=== PATIENT | male | born 1955 | race Caucasian/White ===

== ENCOUNTER → 2016-07-12 | Outpatient (CLI) | payer OTHER ==
[~2016-07-12] MED LIST: ALBUPOW26; FURO40TA OR
[2016-07-12 08:14] LABS: Urine RBC None Seen /hpf (0 - 3)
[2016-07-12 08:35] LABS: Basophils # (auto) 0 uL; Basophils % (auto) 0.6 % (0.0-2.0); Eosinophils # (auto) 0.1 uL; Eosinophils % (auto) 3.5 % (0.0-7.0); Hematocrit 46.9 % (41.0-53.0); Hemoglobin 16.4 g/dL (13.5-17.5); Lymphocytes # (auto) 1.2 uL; Lymphocytes % (auto) 30.8 % (10.0-50.0); Mean Corpuscular Hemoglobin 32.1 pg (28.0-32.0); Mean Corpuscular Hgb Conc. 34.8 g/dL (32.0-36.0); Mean Corpuscular Volume 92.1 fL (80.0-100.0); Mean Platelet Volume 8.3 fL (7.4-10.4); Monocytes # (auto) 0.3 uL; Monocytes % (auto) 8.7 % (0.0-12.0); Neutrophils # (auto) 2.1 uL; Neutrophils % (auto) 56.4 % (37.0-80.0); Platelet Count (auto) 256 10^3/uL (140-450); Red Cell Distribution Width 13.1 % (11.6-16.0); White Blood Cell 3.8 10^3/uL (4.4-10.8)
[2016-07-12 08:36] LABS: Urine Bilirubin Negative (Negative); Urine Blood Negative /uL (Negative); Urine Color Yellow (Yellow); Urine Glucose Normal (Normal); Urine Ketone Negative (Negative); Urine Nitrite Negative (Negative); Urine Urobilinogen Normal (Negative)
[2016-07-12 09:08] LABS: Albumin 3.9 g/dL (3.4-5.0); BUN/Creatinine Ratio 20.2; Bilirubin, Total 0.9 mg/dL (0.2-1.0); Calcium 8.8 mg/dL (8.5-10.1); Potassium 4.4 mmol/L (3.5-5.1); Total Protein 6.9 g/dL (6.4-8.2)
== END | disposition home or self-care (01) ==
LOC: LAB 06:35
DX: N40.0 Benign prostatic hyperplasia without lower urinary tract symptoms (principal); F10.10 Alcohol abuse, uncomplicated; Z80.0 Family history of malignant neoplasm of digestive organs
CPT/HCPCS: 36415; 80053; 80061; 81001; 82270; 84153; 84443; 85025

== ENCOUNTER → 2016-10-31 | Outpatient (CLI) | payer OTHER | END | disposition home or self-care (01) | LOC: LAB 11:00 | PROVIDERS: ATTEND Physician Assistant | DX: L82.1 Other seborrheic keratosis (principal) ==

== ENCOUNTER → 2017-01-10 | Outpatient (CLI) | payer OTHER ==
[2017-01-10 06:52] LABS: Basophils # (auto) 0 uL; Basophils % (auto) 0.3 % (0.0-2.0); CONDITION Y; Eosinophils # (auto) 0.1 uL; Eosinophils % (auto) 3.1 % (0.0-7.0); Hematocrit 46.2 % (41.0-53.0); Hemoglobin 15.8 g/dL (13.5-17.5); Lymphocytes # (auto) 1.1 uL; Lymphocytes % (auto) 27.9 % (10.0-50.0); Mean Corpuscular Hemoglobin 32.5 pg (28.0-32.0); Mean Corpuscular Hgb Conc. 34.3 g/dL (32.0-36.0); Mean Corpuscular Volume 94.8 fL (80.0-100.0); Mean Platelet Volume 8.6 fL (7.4-10.4); Monocytes # (auto) 0.3 uL; Monocytes % (auto) 8.3 % (0.0-12.0); Neutrophils # (auto) 2.5 uL; Neutrophils % (auto) 60.4 % (37.0-80.0); Platelet Count (auto) 234 10^3/uL (140-450); Red Cell Distribution Width 13.9 % (11.6-16.0); White Blood Cell 4.1 10^3/uL (4.4-10.8)
[2017-01-10 07:09] LABS: Urine Bilirubin Negative (Negative); Urine Blood Negative /uL (Negative); Urine Color Yellow (Yellow); Urine Glucose Normal (Normal); Urine Ketone Negative (Negative); Urine Mucus FEW (None Seen); Urine Nitrite Negative (Negative); Urine RBC None Seen /hpf (0 - 3); Urine Urobilinogen Normal (Negative); Urine pH 6.5 (5.0-8.0)
[2017-01-10 07:10] LABS: Albumin 3.8 g/dL (3.4-5.0); BUN/Creatinine Ratio 35.2; Bilirubin, Total 0.8 mg/dL (0.2-1.0); Calcium 8.6 mg/dL (8.5-10.1); Potassium 4.3 mmol/L (3.5-5.1); Total Protein 6.8 g/dL (6.4-8.2)
== END | disposition home or self-care (01) ==
LOC: LAB 06:34
PROVIDERS: ATTEND Family Medicine
DX: J44.9 Chronic obstructive pulmonary disease, unspecified (principal); E03.9 Hypothyroidism, unspecified
CPT/HCPCS: 36415; 80053; 80061; 81001; 84443; 85025

== ENCOUNTER → 2017-12-21 | Outpatient (CLI) | payer OTHER ==
[2017-12-21 08:07] LABS: Basophils # (auto) 0 uL; Basophils % (auto) 0.7 % (0.0-2.0); Eosinophils # (auto) 0.1 uL; Eosinophils % (auto) 2.2 % (0.0-7.0); Hematocrit 45.7 % (41.0-53.0); Hemoglobin 15.7 g/dL (13.5-17.5); Lymphocytes # (auto) 1.1 uL; Lymphocytes % (auto) 22.6 % (10.0-50.0); Mean Corpuscular Hemoglobin 32.8 pg (28.0-32.0); Mean Corpuscular Hgb Conc. 34.4 g/dL (32.0-36.0); Mean Corpuscular Volume 95.4 fL (80.0-100.0); Monocytes # (auto) 0.4 uL; Monocytes % (auto) 8.5 % (0.0-12.0); Neutrophils # (auto) 3.1 uL; Nucleated Red Blood Cells % 0.2 %; Platelet Count (auto) 187 10^3/uL (140-450); Red Blood Cells 4.79 10^6/uL (4.5-5.90); Red Cell Distribution Width 13.6 % (11.8-14.3); White Blood Cell 4.8 10^3/uL (4.4-10.8)
[2017-12-21 08:16] LABS: Urine Bacteria NONE SEEN /hpf (None Seen); Urine Blood Negative /uL (Negative); Urine Specific Gravity 1.006 (1.001-1.035); Urine WBC <1 /hpf (0 - 3)
[2017-12-21 08:47] LABS: Albumin 3.9 g/dL (3.4-5.0); BUN/Creatinine Ratio 27.6; Bilirubin, Total 1.4 mg/dL (0.2-1.0); Calcium 8.8 mg/dL (8.5-10.1); Potassium 4.7 mmol/L (3.5-5.1); Total Protein 6.8 g/dL (6.4-8.2)
== END | disposition home or self-care (01) ==
LOC: LAB 07:12
PROVIDERS: ATTEND Family Medicine
DX: J44.9 Chronic obstructive pulmonary disease, unspecified (principal); R53.83 Other fatigue
CPT/HCPCS: 36415; 80053; 80061; 81001; 82306; 84153; 85025

== ENCOUNTER 2018-09-07 07:18 | Day surgery (SDC) | payer OTHER ==
[2018-09-04 12:35] LABS: Basophils # (auto) 0 uL; Basophils % (auto) 0.6 % (0.0-2.0); Eosinophils # (auto) 0.1 uL; Eosinophils % (auto) 1.4 % (0.0-7.0); Hematocrit 49.5 % (41.0-53.0); Hemoglobin 17.1 g/dL (13.5-17.5); Lymphocytes # (auto) 1.3 uL; Lymphocytes % (auto) 18.5 % (10.0-50.0); Mean Corpuscular Hemoglobin 32.8 pg (28.0-32.0); Mean Corpuscular Hgb Conc. 34.6 g/dL (32.0-36.0); Mean Corpuscular Volume 94.6 fL (80.0-100.0); Monocytes # (auto) 0.4 uL; Monocytes % (auto) 5.3 % (0.0-12.0); Neutrophils # (auto) 5.1 uL; Neutrophils % (auto) 74.2 % (37.0-80.0); Nucleated Red Blood Cells % 0.1 %; Platelet Count (auto) 188 10^3/uL (140-450); Red Blood Cells 5.23 10^6/uL (4.5-5.90); Red Cell Distribution Width 13.9 % (11.8-14.3); White Blood Cell 6.9 10^3/uL (4.4-10.8)
[2018-09-04 12:52] LABS: INR 0.98 (0.9-1.15); Partial Thromboplastin Time 27.1 sec (23.78-33.04)
[~2018-09-07] VITALS: Ht 182.9 cm; Wt 77.1 kg
[~2018-09-07 07:18] MED LIST changes: +FLU220IH INH; -FURO40TA OR; +SILD50TA42 PO
[2018-09-07] MEDS ORDERED: SODIUM CHLORIDE LOCK 10 ML ONE (07:58)
[2018-09-07] MEDS: fentaNYL CITRATE 100 MCG/2 ML VL ONE ×2 (08:58→09:12)
[2018-09-07] MEDS: MIDAZOLAM HCL 5 MG/ML-1ML VIAL ONE ×2 (08:58→09:12)
[2018-09-07] MEDS ORDERED: diphenhdrAMINE HCL 50 MG/1 ML VL ONE (09:01)
[2018-09-07 09:50] VITALS: BP 107/64
== END 2018-09-07 09:58 | disposition home or self-care (01) ==
LOC: SUR 07:18
PROVIDERS: ATTEND Internal Medicine Gastroenterology
DX: Z12.11 Encounter for screening for malignant neoplasm of colon (principal); K57.30 Diverticulosis of large intestine without perforation or abscess without bleeding; Z86.010 Personal history of colon polyps; E66.9 Obesity, unspecified; J43.9 Emphysema, unspecified; Z79.899 Other long term (current) drug therapy; Z98.890 Other specified postprocedural states; Z87.891 Personal history of nicotine dependence; Z80.0 Family history of malignant neoplasm of digestive organs
CPT/HCPCS: 36415; 45378; 85025; 85610; 85730; J1200; J2250; J3010; J7030; 99152

== ENCOUNTER → 2018-11-09 | Outpatient (CLI) | payer OTHER | END | disposition home or self-care (01) | LOC: XYW 08:37 | PROVIDERS: ATTEND Internal Medicine | DX: I07.1 Rheumatic tricuspid insufficiency (principal); I48.91 Unspecified atrial fibrillation | CPT/HCPCS: 93306 ==

== ENCOUNTER → 2019-01-02 | Outpatient (CLI) | payer OTHER ==
[2019-01-02 07:31] LABS: Urine WBC None Seen /hpf (0 - 3)
[2019-01-02 07:37] LABS: Basophils # (auto) 0 uL; Basophils % (auto) 1.2 % (0.0-2.0); Eosinophils # (auto) 0.1 uL; Eosinophils % (auto) 2.4 % (0.0-7.0); Hematocrit 45.6 % (41.0-53.0); Hemoglobin 15.6 g/dL (13.5-17.5); Lymphocytes # (auto) 1.1 uL; Lymphocytes % (auto) 26.9 % (10.0-50.0); Mean Corpuscular Hemoglobin 32.5 pg (28.0-32.0); Mean Corpuscular Hgb Conc. 34.1 g/dL (32.0-36.0); Mean Corpuscular Volume 95.2 fL (80.0-100.0); Monocytes # (auto) 0.4 uL; Monocytes % (auto) 10.6 % (0.0-12.0); Neutrophils # (auto) 2.4 uL; Neutrophils % (auto) 58.9 % (37.0-80.0); Platelet Count (auto) 185 10^3/uL (140-450); Red Blood Cells 4.79 10^6/uL (4.5-5.90); Red Cell Distribution Width 13.2 % (11.8-14.3); White Blood Cell 4.2 10^3/uL (4.4-10.8)
[2019-01-02 07:55] LABS: Urine Bacteria FEW /hpf (None Seen); Urine Blood Negative /uL (Negative); Urine Specific Gravity 1.008 (1.001-1.035)
[2019-01-02 08:02] LABS: Albumin 3.6 g/dL (3.4-5.0); Calcium 8.6 mg/dL (8.5-10.1); Potassium 4.7 mmol/L (3.5-5.1)
[2019-01-02 08:07] LABS: Bilirubin, Total 1.2 mg/dL (0.2-1.0); Total Protein 6.8 g/dL (6.4-8.2)
[2019-01-02 08:42] LABS: Free T4 (Free Thyroxine) 1.13 ng/dL (0.89-1.76); Prostate Specific Antigen 0.59 ng/mL (0.0-4.0)
[2019-01-02 08:43] LABS: Folate (Folic Acid) 13.62 ng/mL (5.38-24)
== END | disposition home or self-care (01) ==
LOC: LAB 07:07
PROVIDERS: ATTEND Internal Medicine
DX: E55.9 Vitamin D deficiency, unspecified (principal); R73.9 Hyperglycemia, unspecified; E78.5 Hyperlipidemia, unspecified
CPT/HCPCS: 36415; 80053; 80061; 81001; 82607; 82746; 83036; 84153; 84439; 84443; 85025

== ENCOUNTER → 2019-11-19 | Outpatient (CLI) | payer OTHER ==
[2019-11-19 07:53] LABS: Basophils # (auto) 0 10 ^3/uL (0-0.2); Basophils % (auto) 1.3 % (0.0-2.0); Eosinophils # (auto) 0.2 10 ^3/uL (0-0.8); Eosinophils % (auto) 4.4 % (0.0-7.0); Hematocrit 45.1 % (41.0-53.0); Hemoglobin 15.2 g/dL (13.5-17.5); Lymphocytes % (auto) 25.5 % (10.0-50.0); Mean Corpuscular Hemoglobin 31.7 pg (28.0-32.0); Mean Corpuscular Hgb Conc. 33.8 g/dL (32.0-36.0); Mean Corpuscular Volume 93.8 fL (80.0-100.0); Monocytes # (auto) 0.3 10 ^3/uL (0-1.3); Monocytes % (auto) 7.4 % (0.0-12.0); Neutrophils # (auto) 2.4 10 ^3/uL (1.6-8.6); Neutrophils % (auto) 61.4 % (37.0-80.0); Platelet Count (auto) 268 10^3/uL (140-450); Red Cell Distribution Width 13.1 % (11.8-14.3); White Blood Cell 3.9 10^3/uL (4.4-10.8)
[2019-11-19 08:27] LABS: Albumin 3.6 g/dL (3.4-5.0); Potassium 4.2 mmol/L (3.5-5.1)
[2019-11-19 08:34] LABS: BUN/Creatinine Ratio 19.5; Bilirubin, Total 0.7 mg/dL (0.2-1.0); Calcium 8.4 mg/dL (8.5-10.1); Total Protein 6.8 g/dL (6.4-8.2)
[2019-11-19 08:36] LABS: Free T4 (Free Thyroxine) 1.21 ng/dL (0.89-1.76)
[2019-11-19 08:37] LABS: Folate (Folic Acid) 12.24 ng/mL (5.38-24)
== END | disposition home or self-care (01) ==
LOC: LAB 07:10
PROVIDERS: ATTEND Internal Medicine
DX: I48.91 Unspecified atrial fibrillation (principal); F32.9 Major depressive disorder, single episode, unspecified; R73.03 Prediabetes
CPT/HCPCS: 36415; 80053; 80061; 82607; 82746; 83036; 84403; 84439; 84443; 85025

== ENCOUNTER → 2019-12-13 | Outpatient (CLI) | payer OTHER | END | disposition home or self-care (01) | LOC: XYW 09:38 | PROVIDERS: ATTEND Internal Medicine | DX: I07.1 Rheumatic tricuspid insufficiency (principal); I48.91 Unspecified atrial fibrillation | CPT/HCPCS: 93306 ==

== ENCOUNTER → 2020-03-16 | Outpatient (CLI) | payer OTHER ==
[~2020-03-16] MED LIST changes: +ASPI81CH43 PO
[2020-03-16 11:01] LABS: Basophils # (auto) 0 10 ^3/uL (0-0.2); Basophils % (auto) 0.7 % (0.0-2.0); Eosinophils # (auto) 0.2 10 ^3/uL (0-0.8); Hematocrit 43.3 % (41.0-53.0); Hemoglobin 14.9 g/dL (13.5-17.5); Lymphocytes # (auto) 1.3 10 ^3/uL (0.4-5.4); Lymphocytes % (auto) 23.4 % (10.0-50.0); Mean Corpuscular Hemoglobin 32.2 pg (28.0-32.0); Mean Corpuscular Hgb Conc. 34.4 g/dL (32.0-36.0); Mean Corpuscular Volume 93.8 fL (80.0-100.0); Monocytes # (auto) 0.5 10 ^3/uL (0-1.3); Monocytes % (auto) 7.9 % (0.0-12.0); Neutrophils # (auto) 3.7 10 ^3/uL (1.6-8.6); Nucleated Red Blood Cells % 0.1 %; Platelet Count (auto) 234 10^3/uL (140-450); Red Blood Cells 4.62 10^6/uL (4.5-5.90); Red Cell Distribution Width 13.9 % (11.8-14.3); White Blood Cell 5.7 10^3/uL (4.4-10.8)
[2020-03-16 11:10] LABS: INR 1.03 (0.9-1.15); Partial Thromboplastin Time 26.4 sec (23.0-31.2)
[2020-03-16 11:48] LABS: Potassium 4.2 mmol/L (3.5-5.1)
[2020-03-16 12:04] LABS: Albumin 3.6 g/dL (3.4-5.0); BUN/Creatinine Ratio 22.4; Bilirubin, Total 0.7 mg/dL (0.2-1.0); Calcium 8.8 mg/dL (8.5-10.1); Total Protein 6.3 g/dL (6.4-8.2)
== END | disposition home or self-care (01) ==
LOC: LAB 10:21
PROVIDERS: ATTEND Internal Medicine
DX: Z01.812 Encounter for preprocedural laboratory examination (principal)
CPT/HCPCS: 36415; 80053; 85025; 85610; 85730

== ENCOUNTER 2020-03-20 06:50 | Inpatient (IN) | payer OTHER ==
[~2020-03-20] VITALS: Ht 182.9 cm; Wt 81.5 kg
[~2020-03-20 06:50] MED LIST changes: -ALBUPOW26; -FLU220IH INH; -SILD50TA42 PO
[2020-03-20] MEDS ORDERED: VANCOMYCIN 1GM/250ML 250 ML IV ONE (08:00)
[2020-03-20] MEDS ORDERED: VANCOMYCIN HCL 1000 MG VL ONE (08:05)
[2020-03-20] MEDS ORDERED: ATROPINE SULF 1 MG/10ml SYR ONE (08:05)
[2020-03-20] MEDS ORDERED: MIDAZOLAM HCL 1MG/1ML-2 ML VIAL ONE (08:06)
[2020-03-20] MEDS ORDERED: fentaNYL CITRATE 100 MCG/2 ML VL ONE (08:06)
[2020-03-20] MEDS ORDERED: LIDOCAINE 2%HCL (LOCAL ANESTH.) INJ 20ML MDV ONE (08:14)
[2020-03-20] MEDS ORDERED: IODIXANOL 320MG/ML 100ML BTL IV ONE (10:25)
[2020-03-20] MEDS ORDERED: diphenhdrAMINE HCL 50 MG/1 ML VL ONE (10:39)
[2020-03-20] MEDS ORDERED: NITROGLYCERIN 0.4 MG SL TAB SL PRN ×2 (12:00→17:45)
[2020-03-20] MEDS ORDERED: ACETAMINOPHEN 325 MG TAB PO PRN (12:00)
[2020-03-20] MEDS ORDERED: MORPHINE SULF INJ 2 MG/ML SYRINGE 1ML IV PRN ×2 (12:00→17:45)
[2020-03-20] MEDS: HYDROcodone-ACET 5/325MG TAB PO PRN (16:13)
--- NOTE | 2020-03-20 16:40 | NUR ---
Telemetry admit from ANESTHESIOLOGIST ASSISTANT CERTIFIED SUZANNAJILLIAN admitted to Telemetry unit after SBAR received from ISABELA Fernando. Patient oriented to АЛЕКСАНДР HENSLEY RN primary RN, unit, room, bed, and unit policies regarding patient care and visiting hours. Patient now on continuous telemetry monitoring, tele box #53 and telemetry reading on arrival to unit is NSR 62BPM. Patient weighed by bedscale and encouraged to call if they need something. Bed in lowest/locked position, bed rails up x2, call light within reach. All questions and concerns addressed, patient verbalized understanding.
[2020-03-20 17:00] VITALS: BP 113/72
--- NOTE | 2020-03-20 17:30 | NUR ---
HOSPITALIST DR. SCHROEDER AT BEDSIDE. WILL CONTINUE TO MONITOR
[2020-03-20] MEDS ORDERED: DOCUSATE CALCIUM 240 MG CAP PO PRN (17:45)
[2020-03-20] MEDS ORDERED: LORazepam 0.5 MG TAB PO PRN (17:45)
[2020-03-20] MEDS ORDERED: HYDROcodone-ACET 10/325MG TAB PO PRN (17:45)
[2020-03-20] MEDS ORDERED: hydrALAZINE HCL 20 MG/ML VL IV PRN (17:45)
[2020-03-20] MEDS ORDERED: ACETAMINOPHEN 500 MG TAB PO PRN (17:45)
--- NOTE | 2020-03-20 19:33 | NUR ---
Opening Shift Note Received report and assumed care of patient. Patient is awake and alert. No signs or symptoms of distress noted. Dressing to Left Upper Chest is clean, dry and intact. Instructed patient on plan of care and to call for assistance as needed. Will continue to monitor.
[2020-03-20 21:48] VITALS: BP 108/60
[2020-03-21 05:01] VITALS: BP 103/62
[2020-03-21] MEDS: HYDROcodone-ACET 5/325MG TAB PO PRN (06:38)
--- NOTE | 2020-03-21 06:38 | NUR ---
Pain Medication Administration Patient complaining of incisional pain 6/10. Will administer pain medication per MD order. Will continue to monitor and will endorse pain level reassessment.
[2020-03-21 07:13] LABS: Basophils # (auto) 0 10 ^3/uL (0-0.2); Basophils % (auto) 0.7 % (0.0-2.0); Eosinophils # (auto) 0.2 10 ^3/uL (0-0.8); Eosinophils % (auto) 2.4 % (0.0-7.0); Hematocrit 43.8 % (41.0-53.0); Hemoglobin 15.1 g/dL (13.5-17.5); Lymphocytes # (auto) 1.2 10 ^3/uL (0.4-5.4); Lymphocytes % (auto) 17.6 % (10.0-50.0); Mean Corpuscular Hemoglobin 32.3 pg (28.0-32.0); Mean Corpuscular Hgb Conc. 34.5 g/dL (32.0-36.0); Mean Corpuscular Volume 93.8 fL (80.0-100.0); Monocytes # (auto) 0.5 10 ^3/uL (0-1.3); Monocytes % (auto) 7.8 % (0.0-12.0); Neutrophils # (auto) 4.7 10 ^3/uL (1.6-8.6); Neutrophils % (auto) 71.5 % (37.0-80.0); Nucleated Red Blood Cells % 0.1 %; Platelet Count (auto) 215 10^3/uL (140-450); Red Blood Cells 4.67 10^6/uL (4.5-5.90); Red Cell Distribution Width 13.6 % (11.8-14.3); White Blood Cell 6.6 10^3/uL (4.4-10.8)
[2020-03-21 07:14] LABS: INR 1.07 (0.9-1.15); Partial Thromboplastin Time 26.8 sec (23.0-31.2)
[2020-03-21 07:37] LABS: Albumin 3.3 g/dL (3.4-5.0); BUN/Creatinine Ratio 22.8; Calcium 8.6 mg/dL (8.5-10.1); Total Protein 5.9 g/dL (6.4-8.2)
--- NOTE | 2020-03-21 08:00 | NUR ---
Opening Shift Note Assumed care of patient, awake, alert, and oriented. No S/S of distress/SOB or pain. Patient s/p pacemaker incision, dressing C/D/I to Left Upper Chest, left arm in sling. Bed in lowest/locked position, bed rails up x2, call light within reach. Instructed on POC and to call for assist PRN. Will continue to monitor for changes Q1hr and PRN.
[2020-03-21 09:00] VITALS: BP 112/75
[2020-03-21] MEDS ORDERED: PANTOPRAZOLE 40 MG TAB PO SCH (10:00)
--- NOTE | 2020-03-21 10:45 | NUR ---
MD ROUNDS DR Mikhail SKINNER AT BEDSIDE. NEW ORDERS RECEIVED/WILL CARRY OUT. WILL CONTINUE TO MONITOR
[2020-03-21 11:41] VITALS: BP 112/75
--- NOTE | 2020-03-21 13:20 | NUR ---
LOW VARGAS FROM [facility] AT BEDSIDE INTERROGATING PACEMAKER. PER SAM: PATIENT PACEMAKER WORKING PROPERLY. WILL D/C ORDERED. WILL CONTINUE TO MONITOR
--- NOTE | 2020-03-21 13:55 | NUR ---
Discharge instructions given as ordered. Encourage to follow up with PMD as instructed. All questions and concerns addressed. Patient verbalized understanding. IV removed with catheter intact, pressure dressing applied. Telemetry unit returned to ICU. Patient taken to vehicle via wheelchair with all personal belongings including [employer] monitor, accompanied by staff and family member. No distress noted at time of departure.
== END 2020-03-21 14:00 | disposition home or self-care (01) | DRG 244 ==
LOC: CATH 06:50 → TELE 06:51 → TELE-WESTW 16:59
PROVIDERS: ADMIT Internal Medicine; ATTEND Internal Medicine
PROC: 0JH606Z Insertion of Pacemaker, Dual Chamber into Chest Subcutaneous Tissue and Fascia, Open Approach (ICD-10-PCS; principal; 2020-03-20)
PROC: 02HK3JZ Insertion of Pacemaker Lead into Right Ventricle, Percutaneous Approach (ICD-10-PCS; 2020-03-20)
PROC: 02H63JZ Insertion of Pacemaker Lead into Right Atrium, Percutaneous Approach (ICD-10-PCS; 2020-03-20)
DX: I49.5 Sick sinus syndrome (principal); I48.91 Unspecified atrial fibrillation; Z20.828 Contact with and (suspected) exposure to other viral communicable diseases; J44.9 Chronic obstructive pulmonary disease, unspecified; Z86.711 Personal history of pulmonary embolism
CPT/HCPCS: 36415; 71045; 80053; 85025; 85610; 85730; 93005; 99152; C1785; G0378; J2250; Q9967

== ENCOUNTER → 2020-04-06 | Outpatient (CLI) | payer OTHER | END | disposition home or self-care (01) | LOC: LAB 14:41 | PROVIDERS: ATTEND Internal Medicine | DX: Z95.0 Presence of cardiac pacemaker (principal) | CPT/HCPCS: 87205 ==

== ENCOUNTER → 2020-12-09 | Outpatient (CLI) | payer OTHER | END | disposition home or self-care (01) | LOC: XYW 11:13 | PROVIDERS: ATTEND Internal Medicine | DX: I07.1 Rheumatic tricuspid insufficiency (principal); I48.0 Paroxysmal atrial fibrillation | CPT/HCPCS: 93306 ==

== ENCOUNTER → 2021-05-18 | Outpatient (CLI) | payer OTHER ==
[2021-05-18 07:14] LABS: Basophils # (auto) 0.1 10 ^3/uL (0-0.2); Eosinophils # (auto) 0.3 10 ^3/uL (0-0.8); Eosinophils % (auto) 5.7 % (0.0-7.0); Hematocrit 43.6 % (41.0-53.0); Hemoglobin 15.3 g/dL (13.5-17.5); Lymphocytes # (auto) 1.1 10 ^3/uL (0.4-5.4); Lymphocytes % (auto) 22.4 % (10.0-50.0); Mean Corpuscular Hemoglobin 32.8 pg (28.0-32.0); Mean Corpuscular Volume 93.9 fL (80.0-100.0); Monocytes # (auto) 0.5 10 ^3/uL (0-1.3); Monocytes % (auto) 9.2 % (0.0-12.0); Neutrophils # (auto) 3.1 10 ^3/uL (1.6-8.6); Neutrophils % (auto) 61.7 % (37.0-80.0); Nucleated Red Blood Cells % 0.1 %; Red Blood Cells 4.65 10^6/uL (4.5-5.90); Red Cell Distribution Width 13.1 % (11.8-14.3)
[2021-05-18 08:15] LABS: Albumin 3.8 g/dL (3.4-5.0); BUN/Creatinine Ratio 23.9; Calcium 8.8 mg/dL (8.5-10.1); Potassium 4.4 mmol/L (3.5-5.1); Total Protein 6.6 g/dL (6.4-8.2)
== END | disposition home or self-care (01) ==
LOC: LAB 06:39
PROVIDERS: ATTEND Student in an Organized Health Care Education/Training Program
DX: R73.03 Prediabetes (principal)
CPT/HCPCS: 36415; 80053; 80061; 82274; 82306; 83036; 85025

== ENCOUNTER → 2021-07-28 | Day surgery (SDC) | payer OTHER ==
[2021-07-26 15:48] LABS: Basophils # (auto) 0.1 10 ^3/uL (0-0.2); Basophils % (auto) 1.3 % (0.0-2.0); Eosinophils # (auto) 0.2 10 ^3/uL (0-0.8); Eosinophils % (auto) 3.5 % (0.0-7.0); Hematocrit 44.2 % (41.0-53.0); Hemoglobin 15.4 g/dL (13.5-17.5); Lymphocytes # (auto) 1.6 10 ^3/uL (0.4-5.4); Lymphocytes % (auto) 26.7 % (10.0-50.0); Mean Corpuscular Hemoglobin 32.6 pg (28.0-32.0); Mean Corpuscular Hgb Conc. 34.8 g/dL (32.0-36.0); Mean Corpuscular Volume 93.7 fL (80.0-100.0); Monocytes # (auto) 0.5 10 ^3/uL (0-1.3); Monocytes % (auto) 7.4 % (0.0-12.0); Neutrophils # (auto) 3.7 10 ^3/uL (1.6-8.6); Neutrophils % (auto) 61.1 % (37.0-80.0); Red Blood Cells 4.72 10^6/uL (4.5-5.90); Red Cell Distribution Width 12.8 % (11.8-14.3); White Blood Cell 6.1 10^3/uL (4.4-10.8)
[2021-07-26 15:50] LABS: Urine Bacteria NONE SEEN /hpf (None Seen); Urine Blood Negative /uL (Negative); Urine Specific Gravity 1.004 (1.001-1.035); Urine WBC None Seen /hpf (0 - 3)
[2021-07-26 16:16] LABS: INR 1.05 (0.9-1.15); Partial Thromboplastin Time 27.4 sec (23.6-33.0)
[2021-07-26 16:30] LABS: Albumin 4.1 g/dL (3.4-5.0); Calcium 9.1 mg/dL (8.5-10.1); Potassium 4.2 mmol/L (3.5-5.1)
[2021-07-26 16:34] LABS: BUN/Creatinine Ratio 20.2; Bilirubin, Total 0.6 mg/dL (0.2-1.0)
[~2021-07-28] VITALS: Ht 182.9 cm; Wt 83.9 kg
[~2021-07-28] MED LIST changes: +ACE3T PO; +ALBUAER3 IN; +BUPIVACAINE W/ EPINEPH 0.25% INJ 50ML MDV ONE; +FLEC100T PO; +GLYCOPYRROLATE 0.2 MG/ML 1ML VIAL ONE; +HYDROmorphone HCL 2 MG/ML VL IV PRN; +LIDOCAINE 2% (LOCAL ANESTH.) PF 5ml SDV ONE; +METO25TA36 PO; +MIDAZOLAM HCL 2MG/2ML 2ml VIAL (1mg/ml) ONE; +NEOSTIGMINE 1 MG/ML INJ (10mg/10ML VIAL) ONE; +ONDANSETRON HCL 4 MG/2 ML VIAL IV PRN; +ONDANSETRON HCL 4 MG/2 ML VIAL ONE; +PHENYLEPHRINE HCL 10 MG/ML VL ONE; +PROPOFOL 10 MG/ML 20 ML IV ONE; +ROCURONIUM 10MG/ML 10ML VIAL IV ONE; +ceFAZolin 1GM/50ML 50 ML IV ONE; +fentaNYL CITRATE 100 MCG/2 ML VL ONE
[2021-07-28] MEDS: HYDROmorphone HCL 2 MG/ML VL IV PRN ×2 (11:10→11:25)
[2021-07-28 11:45] VITALS: BP 111/71
== END | disposition home or self-care (01) ==
LOC: SUR 07:15
PROVIDERS: ATTEND Surgery
DX: K40.90 Unilateral inguinal hernia, without obstruction or gangrene, not specified as recurrent (principal); K41.90 Unilateral femoral hernia, without obstruction or gangrene, not specified as recurrent; D36.0 Benign neoplasm of lymph nodes; I48.91 Unspecified atrial fibrillation; J43.9 Emphysema, unspecified; G47.30 Sleep apnea, unspecified; Z95.0 Presence of cardiac pacemaker; Z98.890 Other specified postprocedural states; Z79.899 Other long term (current) drug therapy; Z20.822 Contact with and (suspected) exposure to COVID-19; Z87.891 Personal history of nicotine dependence; Z82.49 Family history of ischemic heart disease and other diseases of the circulatory system
CPT/HCPCS: 36415; 49550; 80053; 81001; 85025; 85610; 85730; 86850; 86900; 86901; 88305; 88342; C1781; J0690; J1170; J2001; J2250; J2370; J2405; J2704; J3010; U0003

== ENCOUNTER → 2021-08-02 | Outpatient (CLI) | payer OTHER ==
[~2021-08-02] MED LIST changes: -BUPIVACAINE W/ EPINEPH 0.25% INJ 50ML MDV ONE; -GLYCOPYRROLATE 0.2 MG/ML 1ML VIAL ONE; -HYDROmorphone HCL 2 MG/ML VL IV PRN; -LIDOCAINE 2% (LOCAL ANESTH.) PF 5ml SDV ONE; -MIDAZOLAM HCL 2MG/2ML 2ml VIAL (1mg/ml) ONE; -NEOSTIGMINE 1 MG/ML INJ (10mg/10ML VIAL) ONE; -ONDANSETRON HCL 4 MG/2 ML VIAL IV PRN; -ONDANSETRON HCL 4 MG/2 ML VIAL ONE; -PHENYLEPHRINE HCL 10 MG/ML VL ONE; -PROPOFOL 10 MG/ML 20 ML IV ONE; -ROCURONIUM 10MG/ML 10ML VIAL IV ONE; -ceFAZolin 1GM/50ML 50 ML IV ONE; -fentaNYL CITRATE 100 MCG/2 ML VL ONE
[2021-08-02 09:23] LABS: Basophils # (auto) 0.1 10 ^3/uL (0-0.2); Eosinophils # (auto) 0.2 10 ^3/uL (0-0.8); Eosinophils % (auto) 4.2 % (0.0-7.0); Hematocrit 44.7 % (41.0-53.0); Hemoglobin 15.3 g/dL (13.5-17.5); Lymphocytes % (auto) 19.4 % (10.0-50.0); Mean Corpuscular Hemoglobin 32.5 pg (28.0-32.0); Mean Corpuscular Hgb Conc. 34.3 g/dL (32.0-36.0); Mean Corpuscular Volume 94.6 fL (80.0-100.0); Monocytes # (auto) 0.4 10 ^3/uL (0-1.3); Monocytes % (auto) 8.3 % (0.0-12.0); Neutrophils # (auto) 3.5 10 ^3/uL (1.6-8.6); Neutrophils % (auto) 67.1 % (37.0-80.0); Red Blood Cells 4.72 10^6/uL (4.5-5.90); Red Cell Distribution Width 12.7 % (11.8-14.3); White Blood Cell 5.2 10^3/uL (4.4-10.8)
[2021-08-02 10:08] LABS: Albumin 3.4 g/dL (3.4-5.0); Potassium 4.3 mmol/L (3.5-5.1)
[2021-08-02 10:16] LABS: Bilirubin, Direct 0.2 mg/dL (0-0.2); Bilirubin, Total 0.9 mg/dL (0.2-1.0); Calcium 8.9 mg/dL (8.5-10.1); Total Protein 6.8 g/dL (6.4-8.2)
== END | disposition home or self-care (01) ==
LOC: LAB 08:17
PROVIDERS: ATTEND Specialist
DX: E11.8 Type 2 diabetes mellitus with unspecified complications (principal); I10 Essential (primary) hypertension; E78.5 Hyperlipidemia, unspecified; D64.9 Anemia, unspecified; R94.5 Abnormal results of liver function studies
CPT/HCPCS: 36415; 80048; 80061; 80076; 83036; 84443; 85025

== ENCOUNTER 2021-08-05 12:17 | Emergency (ER) | payer OTHER ==
[~2021-08-05] VITALS: Ht 182.9 cm; Wt 83.9 kg
[2021-08-05 13:56] LABS: Basophils # (auto) 0.1 10 ^3/uL (0-0.2); Basophils % (auto) 0.9 % (0.0-2.0); Eosinophils # (auto) 0.3 10 ^3/uL (0-0.8); Eosinophils % (auto) 4.5 % (0.0-7.0); Hematocrit 42.8 % (41.0-53.0); Hemoglobin 14.9 g/dL (13.5-17.5); Lymphocytes # (auto) 1.3 10 ^3/uL (0.4-5.4); Lymphocytes % (auto) 21.6 % (10.0-50.0); Mean Corpuscular Hemoglobin 32.7 pg (28.0-32.0); Mean Corpuscular Hgb Conc. 34.8 g/dL (32.0-36.0); Mean Corpuscular Volume 94.1 fL (80.0-100.0); Monocytes # (auto) 0.4 10 ^3/uL (0-1.3); Monocytes % (auto) 7.3 % (0.0-12.0); Neutrophils # (auto) 4.1 10 ^3/uL (1.6-8.6); Neutrophils % (auto) 65.7 % (37.0-80.0); Nucleated Red Blood Cells % 0.1 %; Red Blood Cells 4.55 10^6/uL (4.5-5.90); Red Cell Distribution Width 13.1 % (11.8-14.3); White Blood Cell 6.2 10^3/uL (4.4-10.8)
[2021-08-05 14:11] LABS: Potassium 4.6 mmol/L (3.5-5.1)
[2021-08-05 14:16] LABS: Albumin 3.3 g/dL (3.4-5.0); Calcium 8.9 mg/dL (8.5-10.1)
[2021-08-05 14:18] LABS: Bilirubin, Total 0.4 mg/dL (0.2-1.0); Total Protein 6.3 g/dL (6.4-8.2)
[2021-08-05 17:15] VITALS: BP 120/57
== END 2021-08-05 17:17 | disposition home or self-care (01) ==
LOC: ER 12:17
DX: S30.1XXA Contusion of abdominal wall, initial encounter (principal); M79.89 Other specified soft tissue disorders; I48.91 Unspecified atrial fibrillation; J44.9 Chronic obstructive pulmonary disease, unspecified; Z87.891 Personal history of nicotine dependence; Z90.89 Acquired absence of other organs; Z95.0 Presence of cardiac pacemaker; X58.XXXA Exposure to other specified factors, initial encounter; Y93.89 Activity, other specified; Y92.89 Other specified places as the place of occurrence of the external cause; Y99.8 Other external cause status
CPT/HCPCS: 36415; 80053; 85025; 93971

== ENCOUNTER → 2021-09-17 | Outpatient (CLI) | payer OTHER | END | disposition home or self-care (01) | LOC: LAB 11:45 | PROVIDERS: ATTEND Student in an Organized Health Care Education/Training Program | DX: Z12.11 Encounter for screening for malignant neoplasm of colon (principal) | CPT/HCPCS: 82270 ==

== ENCOUNTER → 2021-11-12 | Outpatient (CLI) | payer OTHER ==
[2021-11-12 07:17] LABS: Albumin 3.5 g/dL (3.4-5.0); Calcium 8.4 mg/dL (8.5-10.1); Potassium 4.2 mmol/L (3.5-5.1)
[2021-11-12 07:22] LABS: BUN/Creatinine Ratio 20.4; Bilirubin, Direct 0.3 mg/dL (0-0.2); Bilirubin, Total 1.2 mg/dL (0.2-1.0); Total Protein 6.4 g/dL (6.4-8.2)
== END | disposition home or self-care (01) ==
LOC: LAB 06:33
PROVIDERS: ATTEND Specialist
DX: D64.9 Anemia, unspecified (principal); R94.5 Abnormal results of liver function studies; E78.5 Hyperlipidemia, unspecified; E11.8 Type 2 diabetes mellitus with unspecified complications; E03.9 Hypothyroidism, unspecified
CPT/HCPCS: 36415; 80048; 80061; 80076; 83036; 84443

== ENCOUNTER → 2022-01-06 | Outpatient (CLI) | payer OTHER ==
[2022-01-06 07:08] LABS: Basophils # (auto) 0.1 10 ^3/uL (0-0.2); Basophils % (auto) 1.1 % (0.0-2.0); Eosinophils # (auto) 0.1 10 ^3/uL (0-0.8); Eosinophils % (auto) 2.9 % (0.0-7.0); Hematocrit 43.7 % (41.0-53.0); Hemoglobin 14.4 g/dL (13.5-17.5); Lymphocytes # (auto) 1.3 10 ^3/uL (0.4-5.4); Lymphocytes % (auto) 27.4 % (10.0-50.0); Mean Corpuscular Hgb Conc. 33.1 g/dL (32.0-36.0); Mean Corpuscular Volume 93.7 fL (80.0-100.0); Monocytes # (auto) 0.5 10 ^3/uL (0-1.3); Monocytes % (auto) 9.9 % (0.0-12.0); Neutrophils # (auto) 2.7 10 ^3/uL (1.6-8.6); Neutrophils % (auto) 58.7 % (37.0-80.0); Nucleated Red Blood Cells % 0.1 %; Red Blood Cells 4.66 10^6/uL (4.5-5.90); Red Cell Distribution Width 13.1 % (11.8-14.3); White Blood Cell 4.6 10^3/uL (4.4-10.8)
[2022-01-06 07:28] LABS: Albumin 3.5 g/dL (3.4-5.0); Calcium 8.8 mg/dL (8.5-10.1); Potassium 4.5 mmol/L (3.5-5.1)
[2022-01-06 07:33] LABS: BUN/Creatinine Ratio 20.4; Bilirubin, Direct 0.3 mg/dL (0-0.2); Total Protein 6.3 g/dL (6.4-8.2)
== END | disposition home or self-care (01) ==
LOC: LAB 06:39
PROVIDERS: ATTEND Specialist
DX: I10 Essential (primary) hypertension (principal); R94.5 Abnormal results of liver function studies; D64.9 Anemia, unspecified; E78.5 Hyperlipidemia, unspecified; E11.8 Type 2 diabetes mellitus with unspecified complications; E03.9 Hypothyroidism, unspecified
CPT/HCPCS: 36415; 80048; 80061; 80076; 83036; 84443; 85025

== ENCOUNTER → 2022-03-04 | Outpatient (CLI) | payer OTHER | END | disposition home or self-care (01) | LOC: LAB 09:26 | PROVIDERS: ATTEND Family Medicine | DX: L57.0 Actinic keratosis (principal) | CPT/HCPCS: 88302 ==

== ENCOUNTER → 2022-03-18 | Outpatient (CLI) | payer OTHER ==
[2022-03-18 09:36] LABS: Urine WBC None Seen /hpf (0 - 3)
[2022-03-18 09:50] LABS: Basophils # (auto) 0.1 10 ^3/uL (0-0.2); Basophils % (auto) 0.9 % (0.0-2.0); Eosinophils # (auto) 0.1 10 ^3/uL (0-0.8); Eosinophils % (auto) 1.8 % (0.0-7.0); Hematocrit 47.7 % (41.0-53.0); Hemoglobin 15.8 g/dL (13.5-17.5); Lymphocytes # (auto) 1.3 10 ^3/uL (0.4-5.4); Lymphocytes % (auto) 17.6 % (10.0-50.0); Mean Corpuscular Hemoglobin 31.3 pg (28.0-32.0); Mean Corpuscular Hgb Conc. 33.2 g/dL (32.0-36.0); Mean Corpuscular Volume 94.5 fL (80.0-100.0); Monocytes # (auto) 0.6 10 ^3/uL (0-1.3); Monocytes % (auto) 8.6 % (0.0-12.0); Neutrophils # (auto) 5.3 10 ^3/uL (1.6-8.6); Neutrophils % (auto) 71.1 % (37.0-80.0); Nucleated Red Blood Cells % 0.1 %; Red Blood Cells 5.05 10^6/uL (4.5-5.90); Red Cell Distribution Width 13.1 % (11.8-14.3); White Blood Cell 7.5 10^3/uL (4.4-10.8)
[2022-03-18 09:59] LABS: INR 1.06 (0.9-1.15); Partial Thromboplastin Time 28.7 sec (24.6-33.4)
[2022-03-18 10:18] LABS: Urine Bacteria NONE SEEN /hpf (None Seen); Urine Blood Negative /uL (Negative); Urine Specific Gravity 1.007 (1.001-1.035)
[2022-03-18 10:28] LABS: BUN/Creatinine Ratio 19.4; Calcium 9.3 mg/dL (8.5-10.1); Potassium 4.8 mmol/L (3.5-5.1)
== END | disposition home or self-care (01) ==
LOC: LAB 09:20
PROVIDERS: ATTEND Specialist
DX: I10 Essential (primary) hypertension (principal); R31.9 Hematuria, unspecified; D64.9 Anemia, unspecified; Z79.01 Long term (current) use of anticoagulants
CPT/HCPCS: 36415; 80048; 81001; 85025; 85610; 85730

== ENCOUNTER 2022-03-25 07:42 | Day surgery (SDC) | payer OTHER ==
[~2022-03-25] VITALS: Ht 182.9 cm; Wt 83.9 kg
[~2022-03-25 07:42] MED LIST changes: -ACE3T PO; +APIX5TAB PO; -ASPI81CH43 PO; +ATOR10TA PO; +DRON400T PO; -FLEC100T PO
[2022-03-25] MEDS ORDERED: HEPARIN SODIUM (PORCINE) 5000 UNITS/ML 1ML VIAL ONE (08:28)
[2022-03-25] MEDS ORDERED: fentaNYL CITRATE 100 MCG/2 ML VL ONE (08:28)
[2022-03-25] MEDS ORDERED: VERAPAMIL 2.5MG/ML INJ 2ML VIAL IV ONE (08:28)
[2022-03-25] MEDS ORDERED: ANGIOMAX 250 MG VIAL IV ONE (08:28)
[2022-03-25] MEDS ORDERED: MIDAZOLAM HCL 2MG/2ML 2ml VIAL (1mg/ml) ONE (08:29)
[2022-03-25] MEDS ORDERED: SODIUM CHL 0.9% 0 ML ONE (08:29)
[2022-03-25] MEDS ORDERED: LIDOCAINE 2%HCL (LOCAL ANESTH.) INJ 20ML MDV ONE (08:33)
[2022-03-25] MEDS ORDERED: IODIXANOL 320MG/ML 100ML BTL IV ONE (09:03)
== END 2022-03-25 11:06 | disposition home or self-care (01) ==
LOC: CATH 07:42
PROVIDERS: ATTEND Internal Medicine Cardiovascular Disease
DX: R94.39 Abnormal result of other cardiovascular function study (principal); I48.0 Paroxysmal atrial fibrillation; E78.5 Hyperlipidemia, unspecified; I10 Essential (primary) hypertension; Z95.0 Presence of cardiac pacemaker; Z79.899 Other long term (current) drug therapy; Z20.822 Contact with and (suspected) exposure to COVID-19; Z79.01 Long term (current) use of anticoagulants
CPT/HCPCS: 93458; C1769; C1887; C1894; J1644; J2250; J3010; J7030; Q9967; U0003; 99152

== ENCOUNTER → 2022-07-11 | Outpatient (CLI) | payer OTHER | END | disposition home or self-care (01) | LOC: LAB 13:50 | PROVIDERS: ATTEND Student in an Organized Health Care Education/Training Program | DX: Z12.11 Encounter for screening for malignant neoplasm of colon (principal) | CPT/HCPCS: 82274 ==

== ENCOUNTER → 2023-01-26 | Outpatient (CLI) | payer OTHER ==
[2023-01-26 13:24] LABS: Basophils # (auto) 0.1 10 ^3/uL (0-0.2); Eosinophils # (auto) 0.2 10 ^3/uL (0-0.8); Eosinophils % (auto) 2.5 % (0.0-7.0); Hematocrit 45.2 % (41.0-53.0); Hemoglobin 15.5 g/dL (13.5-17.5); Lymphocytes # (auto) 1.4 10 ^3/uL (0.4-5.4); Lymphocytes % (auto) 21.2 % (10.0-50.0); Mean Corpuscular Hemoglobin 32.2 pg (28.0-32.0); Mean Corpuscular Hgb Conc. 34.2 g/dL (32.0-36.0); Mean Corpuscular Volume 94.1 fL (80.0-100.0); Monocytes # (auto) 0.5 10 ^3/uL (0-1.3); Monocytes % (auto) 7.4 % (0.0-12.0); Neutrophils # (auto) 4.4 10 ^3/uL (1.6-8.6); Neutrophils % (auto) 67.9 % (37.0-80.0); Red Blood Cells 4.81 10^6/uL (4.5-5.90); Red Cell Distribution Width 13.2 % (11.8-14.3); White Blood Cell 6.4 10^3/uL (4.4-10.8)
[2023-01-26 13:55] LABS: Alanine Aminotransferase 22 U/L (7-40); Albumin 4.9 g/dL (3.2-4.8); Alkaline Phosphatase 42 U/L (46-116); Anion Gap 3 (5-15); Aspartate Aminotransferase 21 U/L (13-40); BUN/Creatinine Ratio 17.5 (10.0-20.0); Bilirubin, Total 0.9 mg/dL (0.2-1.0); Blood Urea Nitrogen 20 mg/dL (9-23); Calcium 9.3 mg/dL (8.7-10.4); Carbon Dioxide 28 mmol/L (20-30); Chloride 104 mmol/L (98-107); Glucose 91 mg/dL (74-106); Potassium 4.4 mmol/L (3.5-5.1); Sodium 135 mmol/L (136-145); Total Protein 6.8 g/dL (5.7-8.2)
== END | disposition home or self-care (01) ==
LOC: LAB 13:11
PROVIDERS: ATTEND Internal Medicine Cardiovascular Disease
DX: I48.19 Other persistent atrial fibrillation (principal)
CPT/HCPCS: 36415; 80053; 85025

== ENCOUNTER 2023-02-01 17:11 | Emergency (ER) | payer OTHER ==
[~2023-02-01] VITALS: Ht 182.9 cm; Wt 90.9 kg
[2023-02-01 18:52] VITALS: TEMP 97.4
[2023-02-01] MEDS ORDERED: ONDANSETRON HCL 4 MG/2 ML VIAL IV ONE (19:15)
[2023-02-01] MEDS ORDERED: MORPHINE SULFATE 4 MG/ML SYR/VIAL IV ONE (19:15)
[2023-02-01] MEDS ORDERED: DexAMETHasone SOD PHOS 10MG/1ML VIAL INJ IV ONE (20:00)
[2023-02-01] MEDS ORDERED: HYDR-4902 PO (20:06)
[2023-02-01] MEDS ORDERED: MORPHINE SULFATE 4 MG/ML SYR/VIAL IM ONE (21:45)
[2023-02-01] MEDS ORDERED: DexAMETHasone SOD PHOS 10MG/1ML VIAL INJ IM ONE (21:45)
[2023-02-01] MEDS ORDERED: ONDANSETRON ODT 4 MG TAB PO ONE (21:45)
[2023-02-01 22:23] VITALS: BP 110/81; PULSE 60; RESP 18; O2SAT 95
== END 2023-02-01 22:22 | disposition home or self-care (01) ==
LOC: ER 17:11
DX: M54.59 Other low back pain (principal); R07.89 Other chest pain; J44.9 Chronic obstructive pulmonary disease, unspecified; Z90.89 Acquired absence of other organs; Z95.0 Presence of cardiac pacemaker
CPT/HCPCS: 72131; 93005; 96372; 99285; J1100; J2270; Q0162; J2405

== ENCOUNTER → 2023-05-18 | Outpatient (CLI) | payer OTHER ==
[~2023-05-18] MED LIST changes: +HYDR-4902 PO
[2023-05-18 07:02] LABS: Basophils # (auto) 0 10 ^3/uL (0-0.2); Basophils % (auto) 0.9 % (0.0-2.0); Eosinophils # (auto) 0.1 10 ^3/uL (0-0.8); Eosinophils % (auto) 1.8 % (0.0-7.0); Hematocrit 44.5 % (41.0-53.0); Lymphocytes # (auto) 0.9 10 ^3/uL (0.4-5.4); Lymphocytes % (auto) 21.7 % (10.0-50.0); Mean Corpuscular Hemoglobin 32.2 pg (28.0-32.0); Mean Corpuscular Hgb Conc. 33.8 g/dL (32.0-36.0); Mean Corpuscular Volume 95.3 fL (80.0-100.0); Monocytes # (auto) 0.6 10 ^3/uL (0-1.3); Monocytes % (auto) 13.7 % (0.0-12.0); Neutrophils # (auto) 2.5 10 ^3/uL (1.6-8.6); Neutrophils % (auto) 61.9 % (37.0-80.0); Nucleated Red Blood Cells % 0.2 %; Red Blood Cells 4.66 10^6/uL (4.5-5.90); Red Cell Distribution Width 13.4 % (11.8-14.3); White Blood Cell 4.1 10^3/uL (4.4-10.8)
[2023-05-18 07:28] LABS: Alanine Aminotransferase 26 U/L (7-40); Albumin 4.1 g/dL (3.2-4.8); Alkaline Phosphatase 41 U/L (46-116); Anion Gap 4 (5-15); Aspartate Aminotransferase 28 U/L (13-40); BUN/Creatinine Ratio 17.6 (10.0-20.0); Blood Urea Nitrogen 16 mg/dL (9-23); Calcium 9.1 mg/dL (8.5-10.1); Carbon Dioxide 29 mmol/L (20-30); Chloride 106 mmol/L (98-107); Cholesterol 111 mg/dL (< 200); Glucose 97 mg/dL (74-106); HDL Cholesterol 46 mg/dL (40-59); LDL Cholesterol 55 mg/dL (< 100); Potassium 4.3 mmol/L (3.5-5.1); Sodium 139 mmol/L (136-145); Triglycerides 30 mg/dL (< 150)
[2023-05-18 07:29] LABS: Bilirubin, Total 0.9 mg/dL (0.2-1.0); Total Protein 6.1 g/dL (5.7-8.2)
== END | disposition home or self-care (01) ==
LOC: LAB 06:14
PROVIDERS: ATTEND Student in an Organized Health Care Education/Training Program
DX: I48.19 Other persistent atrial fibrillation (principal); I10 Essential (primary) hypertension; N52.9 Male erectile dysfunction, unspecified; Z95.0 Presence of cardiac pacemaker
CPT/HCPCS: 36415; 80053; 80061; 85025

== ENCOUNTER → 2023-07-27 | Outpatient (CLI) | payer OTHER ==
[~2023-07-27] MED LIST changes: +ALBU0.084 IN; -ALBUAER3 IN; -DRON400T PO; +GABA-1250 PO; -HYDR-4902 PO; +HYDR25TA5 PO; -METO25TA36 PO; +SILD50TA42 PO
[2023-07-27 06:41] LABS: Basophils # (auto) 0.1 10 ^3/uL (0-0.2); Eosinophils # (auto) 0.2 10 ^3/uL (0-0.8); Eosinophils % (auto) 3.3 % (0.0-7.0); Hemoglobin 14.6 g/dL (13.5-17.5); Lymphocytes # (auto) 1.3 10 ^3/uL (0.4-5.4); Lymphocytes % (auto) 22.7 % (10.0-50.0); Mean Corpuscular Hemoglobin 31.3 pg (28.0-32.0); Mean Corpuscular Hgb Conc. 33.9 g/dL (32.0-36.0); Mean Corpuscular Volume 92.5 fL (80.0-100.0); Monocytes # (auto) 0.6 10 ^3/uL (0-1.3); Monocytes % (auto) 10.7 % (0.0-12.0); Neutrophils # (auto) 3.5 10 ^3/uL (1.6-8.6); Neutrophils % (auto) 62.3 % (37.0-80.0); Red Blood Cells 4.65 10^6/uL (4.5-5.90); Red Cell Distribution Width 12.9 % (11.8-14.3); White Blood Cell 5.6 10^3/uL (4.4-10.8)
[2023-07-27 06:52] LABS: Alanine Aminotransferase 16 U/L (7-40); Albumin 4.4 g/dL (3.2-4.8); Alkaline Phosphatase 56 U/L (46-116); Anion Gap 6 (5-15); Aspartate Aminotransferase 19 U/L (13-40); BUN/Creatinine Ratio 17.1 (10.0-20.0); Blood Urea Nitrogen 14 mg/dL (9-23); Calcium 9.4 mg/dL (8.5-10.1); Carbon Dioxide 29 mmol/L (20-30); Chloride 101 mmol/L (98-107); Glucose 107 mg/dL (74-106); Sodium 136 mmol/L (136-145)
[2023-07-27 06:53] LABS: Total Protein 6.7 g/dL (5.7-8.2)
== END | disposition home or self-care (01) ==
LOC: LAB 06:06
PROVIDERS: ATTEND Internal Medicine Cardiovascular Disease
DX: Z45.018 Encounter for adjustment and management of other part of cardiac pacemaker (principal); I48.19 Other persistent atrial fibrillation; Z79.01 Long term (current) use of anticoagulants; Z98.890 Other specified postprocedural states; Z86.79 Personal history of other diseases of the circulatory system
CPT/HCPCS: 36415; 80053; 85025

== ENCOUNTER → 2024-03-21 | Outpatient (CLI) | payer OTHER ==
[~2024-03-21] VITALS: Ht 182.9 cm; Wt 88.5 kg
[~2024-03-21] MED LIST changes: +SILD50TA PO; -SILD50TA42 PO
[2024-03-21] MEDS: REGADENOSON 0.4 MG/5 ML SYRG IV ONE ×2 (12:33→12:37)
--- NOTE | 2024-03-21 18:12 | DVHSR ---
APPROVED REPORT Exam: Nuclear Stress Test Indication: Cardiac clearance BMI: 0 Medical History Medical History: COPD, Pacemaker Allergies: No known drug allergies Stress Test Details Stress Test: Pharmacologic stress testing performed using 0.4 mg of regadenoson per 5 mL given IV ov er 10 seconds. HR Resting HR: 60 bpmMax Heart Rate (APMHR): 153.034521 bpm Max HR Achieved: 83 bpmTarget HR (85% APMHR): 130.458477 bpm % of APMHR: 54.25 Recovery HR: 62 bpm BP Resting BP: 112/69 mmHg Recovery BP: 108/70 mmHg ECG Resting ECG: Sinus Rhythm Clinical Reason for Termination: Completed protocol Nurse Comments Recieved pt. from Nuc Med. A/Ox4 on RA. Connected to rock cutter, VS stable. PIV flushes well. Reviewed POC. Pt. verbalized understanding of procedure including risks and side ef fects, agrees for stress testing. Lexiscan stress test performed per protocol. [employer] administered Cardiolite. Pt. tolerated well . Pt. stable, no change on exam. VS returned to baseline. Transferred to Nuclear medicine. Stress ECG Conclusion Resting ECG shows normal sinus rhythm, at peak stress level no dynamic EKG changes was noted. Resting images shows decreased radioactive uptake in the inferior wall of the basal to mid segment co uld represent old myocardial infarction versus diaphragmatic attenuation artifact. Stress images still shows decreased radioactive tracer with the inferior wall of the basal to mid seg ment could represent ischemia versus diaphragmatic attenuation. Well-preserved left ventricular systolic function at 56%. Impression: Possible old inferior infarction, versus diaphragmatic attenuation clinical correlation is required, low risk study. NM EXAM: Myocardial Perfusion REST/STRESS Imaging Protocol: Rest Tc-99m/Stress Tc-99m 1 day Resting Data Rest SPECT myocardial perfusion imaging was performed in supine position 60 minutes following the int ravenous injection of 11.54 mCi of Tc-99m Sestamibi. Time of rest injection: 1130 Time of rest imagin Administration Route: IV Administration Site: Right AC Pharmacologic Stress Pharmacologic stress test was performed by injecting Regadenoson 0.4 mg IV push followed by the intra venous injection of 30 mCi of Tc-99m Sestamibi. Time of stress injection: 1238 Time of stress imagin Administration Route: IV Administration Site: Right AC Gated Stress SPECT was performed 60 minutes after stress injection. The images were gated to evaluate regional wall motion and calculate left ventricular ejection fracti on. Stress only was performed in the Supine position. Nuclear Conclusion ECG Findings: negative for ischemia Clinical Findings: negative for ischemia Nuclear Findings: negative for ischemia Exercise Capacity: not assessed Left Ventricular Function: normal Risk Study: low Resting ECG shows normal sinus rhythm, at peak stress level no dynamic EKG changes was noted. Resting images shows decreased radioactive uptake in the inferior wall of the basal to mid segment co uld represent old myocardial infarction versus diaphragmatic attenuation artifact. Stress images still shows decreased radioactive tracer with the inferior wall of the basal to mid seg ment could represent ischemia versus diaphragmatic attenuation. Well-preserved left ventricular systolic function at 56%. Impression: Possible old inferior infarction, versus diaphragmatic attenuation clinical correlation is required, low risk study.
== END | disposition home or self-care (01) ==
LOC: XYW 11:01
PROVIDERS: ATTEND Internal Medicine
DX: Z01.810 Encounter for preprocedural cardiovascular examination (principal); K62.1 Rectal polyp; J44.9 Chronic obstructive pulmonary disease, unspecified; Z95.0 Presence of cardiac pacemaker
CPT/HCPCS: 78452; 93017; A9500; J2785

== ENCOUNTER 2024-06-12 15:45 | Emergency (ER) | payer OTHER ==
[~2024-06-12] VITALS: Ht 182.9 cm; Wt 88.0 kg
--- NOTE | 2024-06-12 16:07 | ED.PDOC ---
HPI Comments HPI: Poor Historian. HPI: 69 y/o M, with PMHX of AFIB, presents to the ED for CC of palpations. Patient states, that he began to experience sudden heart palpitations following putting his AirPods in his shirt pocket. Patient relays, that his heart fluttered in route to ED and spontaneously stopped. Patient comments on, heart rate being in the 160s on oximeter and blood pressure to be 140/100 at home. Patient denies SOB, chest pain, nausea, vomiting, headache, or dizziness. No other symptoms or modifying factors at this time. Patient's symptoms resolved in route to the ER. Initial Vital Signs: Temp : BP:145/82 HR:73 RR: SpO2: Past Medical History: A-FIB, HLD Past Surgical History: PM, CARDIAC ABLASION, HERNIA REPAIR, pacemaker Social History: Denies smoking, ETOH, or drug use. Medications: ASPIRIN, HYDROCHLOROTHIAZIDE REVIEW OF SYSTEMS: CONSTITUTIONAL: Denies acute: fever, diaphoresis, chills, generalized weakness. HEAD: Denies acute: headache, photophobia Eyes: Denies acute: Double vision, vision loss, eye pain, eye discharge. EARS: Denies acute: tinnitus, hearing loss, ear discharge, ear pain, THROAT: Denies acute: sore throat, swelling, difficulty swallowing , pain with swallowing, change in voice. NECK: Denies acute: neck pain, neck swelling, stiff neck. HEART: Denies acute : chest pain, LUNGS: Denies acute: SOB, wheezing, cough, hemoptysis ABDOMEN: Denies acute: abdominal pain, Nausea, Vomiting, diarrhea, melena , hematemesis, hematochezia SKIN: Denies acute: rash, redness, lesions, itchiness. EXTREMITIES: Denies acute: calf pain, numbness, tingling, weakness, denies pain in extremity. Denies acute: Low back pain. Neuro: Denies acute: focal neurological deficit, motor or sensory focal neurological deficit, tremors, seizure like activity, confusion, dizziness, change in mental status, loss of bowel or bladder function, cauda equina like symptoms. : Denies acute: dysuria, hematuria, flank pain, increase in urinary frequency. PSYCH: Denies acute: hallucination, suicidal ideation, homicidal ideation. PHYSICAL EXAM: General: no acute distress, awake and alert. Head: normocephalic, atraumatic. Neck: supple, trachea is midline, no swelling. Throat: Normal phonation. Eyes:, no erythema, no purulent discharge, no proptosis, no icterus. Heart: regular rate, regular rhythm, no significant murmur appreciated. Lungs: no apparent respiratory distress, Able to speak in full sentences. No wheezing, no rhonchi, no crackles. No stridors Clear to auscultation bilaterally. Abdomen: non tender to palpation, non distended, soft, no guarding, no rebound, + bowel sounds. Neuro: Awake, Alert, oriented to name, self, situation, follows commands GCS=15. Speech is normal. Skin: no petechia, no purpura, no cyanosis, non-pale, not jaundice. Lower extremities: --trace bilateral - Pitting edema no deformity, no focal swelling, no calf TTP. Makes eye contact. moves all four extremities. Face: no apparent facial droop. Ambulating in the ED independently. Chief Complaint: Palpitations Time Seen by MD: 15:50 Primary Care Provider: DOLLY Reviewed Notes: Nurses Notes, Medications, Allergies Allergies: Coded Allergies: NO KNOWN ALLERGIES (Verified , 03/23/22) Home Meds Reported Medications Hctz (Hydrochlorothiazide) 25 Mg Tab, 12.5 MG PO DAILY, TAB 06/06/23 Sildenafil Citrate (Viagra) 50 Mg Tab, 50 MG PO UD, TAB 06/06/23 Gabapentin (Gabapentin) 300 Mg Cap, 300 MG PO HS, CAP 06/06/23 Albuterol Sulfate (Albuterol Sulfate) 0.083 % Neb, 0.083 % IN Use 1 vial via nebulizer every 6 hours as needed 06/06/23 Atorvastatin Calcium (Lipitor) 10 Mg Tab, 1 TAB PO QPM for DYSLIPIDEMIA, #90 TAB 3 Refills 03/23/22 Apixaban Base (ELIQUIS) 5 Mg Tab, 5 MG PO BID for A.FIB, TAB 03/23/22 Information Source: Patient Mode of Arrival: Ambulatory Severity: Moderate Timing: Hours Duration: Since onset Prehospital treatment: None Onset: At Rest Cardiac Risk Factors: None PE Risk Factors: None History of: None Modifying Factors: Nothing Associated Signs and Symptoms: None Was a procedure done? Was a procedure done?: No CP Differential Dx Differential Diagnosis: A-fib, A-Flutter, Angina, Anxiety / Panic Attack, Atrial Dysrhythmia, AV Block 1st Degree, AV Block 2nd Degree, AV Block 3rd Degree, Digoxin Toxicity, Electrolyte Disorder, Heart Failure, Hyperthyroidism, Hyperventilation, Hypoxia, MAT, [place], PAC's, Pacemaker Malfunction, PSVT, Pulmonary Embolus, PVC's, Renal Failure, Sinus Tachycardia, Torsades De Pointes, Ventricular Dysrhythmia, V-Fib, V-Tach, WPW X-Ray, Labs, Meds, VS Vital Signs Date Time Temp Pulse Resp B/P (MAP) Pulse Ox O2 Delivery O2 Flow Rate FiO2 06/12/24 16:53 67 06/12/24 16:37 98.0 69 17 145/82 (103) 94 06/12/24 15:59 69 Lab Test 06/12/24 16:46 06/12/24 16:00 Range/Units Magnesium Level 2.1 1.6-2.6 mg/dL Troponin I High Sensitivity 3 L 3 L </=54 ng/L White Blood Count 6.8 4.4-10.8 10^3/uL Red Blood Count 4.79 4.5-5.90 10^6/uL Hemoglobin 14.9 13.5-17.5 g/dL Hematocrit 44.0 41.0-53.0 % Mean Corpuscular Volume 91.8 80.0-100.0 fL Mean Corpuscular Hemoglobin 31.1 28.0-32.0 pg Mean Corpuscular Hemoglobin Concent 33.9 32.0-36.0 g/dL Red Cell Distribution Width 13.8 11.8-14.3 % Platelet Count 207 140-450 10^3/uL Mean Platelet Volume 7.7 6.9-10.8 fL Neutrophils (%) (Auto) 70.6 37.0-80.0 % Lymphocytes (%) (Auto) 18.8 10.0-50.0 % Monocytes (%) (Auto) 7.9 0.0-12.0 % Eosinophils (%) (Auto) 2.2 0.0-7.0 % Basophils (%) (Auto) 0.5 0.0-2.0 % Neutrophils # (Auto) 4.8 1.6-8.6 10 ^3/uL Lymphocytes # (Auto) 1.3 0.4-5.4 10 ^3/uL Monocytes # (Auto) 0.5 0-1.3 10 ^3/uL Eosinophils # (Auto) 0.1 0-0.8 10 ^3/uL Basophils # (Auto) 0 0-0.2 10 ^3/uL Nucleated Red Blood Cells 0.2 % Urine Color Colorless Yellow Urine Clarity Clear Clear Urine pH 5.5 5.0-9.0 Urine Specific Jensen 1.005 1.001-1.035 Urine Protein Negative Negative Urine Ketones Negative Negative Urine Blood Negative Negative /uL Urine Nitrite Negative Negative Urine Bilirubin Negative Negative Urine Urobilinogen Normal Negative mg/dL Urine Leukocyte Esterase Negative Negative /uL Urine RBC None seen 0 - 3 /hpf Urine Microscopic WBC < 1 0-3 /HPF Urine Squamous Epithelial Cells None seen <5 /hpf Urine Bacteria None seen None Seen /hpf Urine Glucose Normal Normal mg/dL Sodium Level 131 L 136-145 mmol/L Potassium Level 4.3 3.5-5.1 mmol/L Chloride Level 100 98-107 mmol/L Carbon Dioxide Level 24 20-31 mmol/L Anion Gap 7 5-15 Blood Urea Nitrogen 20 9-23 mg/dL Creatinine 0.88 0.700-1.30 mg/dL Glomerular Filtration Rate Calc 94 >90 mL/min BUN/Creatinine Ratio 22.7 H 10.0-20.0 Serum Glucose 99 74-106 mg/dL Calcium Level 9.7 8.7-10.4 mg/dL Total Bilirubin 0.9 0.2-1.0 mg/dL Aspartate Amino Transferase (AST) 29 13-40 U/L Alanine Aminotransferase (ALT) 26 7-40 U/L Alkaline Phosphatase 47 46-116 U/L Total Protein 6.2 5.7-8.2 g/dL Albumin 4.4 3.2-4.8 g/dL [facility] [id number] [place] [id number] Ph: [phone] DIAGNOSTIC IMAGING Diagnostic Imaging Report : [id number] Signed PATIENT: JILLIAN BRISENO ACCT: [id number] UNIT: [id number] : 1955 LOC: ER ROOM / BED: / AGE / SEX: 69 / M ADM STATUS: REG ER SERVICE 1549 ORDERING PHYSICIAN: JEEVAN FORD MD PROCEDURE(s): CXRP - CHEST PORTABLE REASON: PALPATIONS ORDER NUMBER(s): [id number], ACCESSION NUMBER(s): [id number] EXAM: XR Chest, 1 View CLINICAL INDICATION: PALPATIONS TECHNIQUE: Frontal view of the chest. COMPARISON: CHEST PORTABLE on DOS: 03/21/20, CHEST PORTABLE on DOS: 03/20/20 FINDINGS: LUNGS AND PLEURAL SPACES: Unremarkable. No consolidation. No pneumothorax. HEART: Unremarkable. No cardiomegaly. MEDIASTINUM: Unremarkable. Normal mediastinal contour. BONES/JOINTS: Unremarkable. No acute fracture. TUBES, LINES AND DEVICES: Left-sided cardiac pacemaker. OTHER FINDINGS: . . . .. IMPRESSION: No acute cardiopulmonary process. ATED BY: KETAN WANG MD DICTATED DATE/TIME: 06/12/241616 SIGNED BY: KETAN WANG MD SIGNED DATE/TIME: 06/12/241616 CC: Time of 1ST Reevaluation: 16:20 Reevaluation 1ST: Unchanged Time of 2ND Reevaluation: 17:59 Reevaluation 2ND: Resolved Patient Education/Counseling: Diagnosis, Treatment Family Education/Counseling: No Family Present Comments Patient presented with the above HPI.---palpitations---workup was initiated. patient was found with the above mentioned diagnosis. the following medications were ordered: please refer to order lists of meds and tests obtained by myself Dr. Landin. Patient ED course and VS have been stabilized. Patient has been reassessed in the ED and remained in a stable condition. Pertinent incidental findings were discussed with the patient and/or family. Patient/family voices understanding and is agreeable with plan. Patient has been observed in the ED adequate length of time to insure improvement/stability. Escalation of care considered: Consideration of escalation to observation or admission Patient was DISCHARGED home in a stable condition. All the reports of any imaging studies that were ordered by myself were reviewed by myself. Additional Information Departure 1 Departure Time of Disposition: 17:05 Impression: Primary Impression: Palpitation Disposition: 01 HOME / SELF CARE / HOMELESS Condition: Stable Additional Instructions: Additional discharge instructions: You MUST follow-up with your primary care/family doctor in 1 to 2 days. If you are unable to see your primary care/family doctor, please return to our emergency room for re-assessment and re-evaluation in 1 to 2 days. Return to the emergency room here in our facility or to the nearest ER [facility] if your symptoms change or worsen. CONSULTATIONS: you MUST Follow-up for consultation as soon as possible with: -cardiology in 1-2 days. Please call for appointment. You MUST call the consultants office yourself to make an appointment. You may need to arrange that through your insurance and/or your primary/family doctor. If you are unable to see the rewards consultant in 1 to 2 days, you must return to our emergency room (or any other ER of your choice) for re-assessment and re- evaluation. Adequate fluid hydration. Avoid alcohol. Avoid caffeinated drinks. Avoid energy drinks. Below is a copy of your radiological report for follow up: [place] [address] Ph: [phone] DIAGNOSTIC IMAGING Diagnostic Imaging Report : [id number] Signed PATIENT: JILLIAN BRISENO ACCT: [id number] UNIT: [id number] : 1955 LOC: ER ROOM / BED: / AGE / SEX: 69 / M ADM STATUS: REG ER SERVICE 1547 ORDERING PHYSICIAN: JEEVAN FORD MD PROCEDURE(s): CXRP - CHEST PORTABLE REASON: PALPATIONS ORDER NUMBER(s): [id number], ACCESSION NUMBER(s): [id number] EXAM: XR Chest, 1 View CLINICAL INDICATION: PALPATIONS TECHNIQUE: Frontal view of the chest. COMPARISON: CHEST PORTABLE on DOS: 03/21/20, CHEST PORTABLE on DOS: 03/20/20 FINDINGS: LUNGS AND PLEURAL SPACES: Unremarkable. No consolidation. No pneumothorax. HEART: Unremarkable. No cardiomegaly. MEDIASTINUM: Unremarkable. Normal mediastinal contour. BONES/JOINTS: Unremarkable. No acute fracture. TUBES, LINES AND DEVICES: Left-sided cardiac pacemaker. OTHER FINDINGS: . . . .. IMPRESSION: No acute cardiopulmonary process. ATED BY: KETAN WANG MD DICTATED DATE/TIME: 06/12/241616 SIGNED BY: KETAN WANG MD SIGNED DATE/TIME: 06/12/241616 CC: Discharged With: Self Heart Score Heart Score: Heart Score Response (Comments) Value History Slightly Suspicious 0 EKG Normal 0 Age >65 2 Risk Factors 1 or 2 risk factors 1 Troponin Normal limit 0 Total 3 I personally scribed for AJ LANDIN DO ([email or web address]) on 06/12/24 at 16:07. Electronically submitted by Valerie Segura ([employer]). I personally scribed for AJ LANDIN DO ([email or web address]) on 06/12/24 at 17:27. Electronically submitted by Valerie Segura ([employer]). I personally scribed for AJ LANDIN DO ([email or web address]) on 06/12/24 at 17:30. Electronically submitted by Valerie Segura ([employer]). AJ LANDIN DO Jun 12, 2024 16:07
[2024-06-12 16:16] LABS: Basophils # (auto) 0 10 ^3/uL (0-0.2); Basophils % (auto) 0.5 % (0.0-2.0); Eosinophils # (auto) 0.1 10 ^3/uL (0-0.8); Eosinophils % (auto) 2.2 % (0.0-7.0); Hemoglobin 14.9 g/dL (13.5-17.5); Lymphocytes # (auto) 1.3 10 ^3/uL (0.4-5.4); Lymphocytes % (auto) 18.8 % (10.0-50.0); Mean Corpuscular Hemoglobin 31.1 pg (28.0-32.0); Mean Corpuscular Hgb Conc. 33.9 g/dL (32.0-36.0); Mean Corpuscular Volume 91.8 fL (80.0-100.0); Monocytes # (auto) 0.5 10 ^3/uL (0-1.3); Monocytes % (auto) 7.9 % (0.0-12.0); Neutrophils # (auto) 4.8 10 ^3/uL (1.6-8.6); Neutrophils % (auto) 70.6 % (37.0-80.0); Nucleated Red Blood Cells % 0.2 %; Platelet Count (auto) 207 10^3/uL (140-450); Red Blood Cells 4.79 10^6/uL (4.5-5.90); Red Cell Distribution Width 13.8 % (11.8-14.3); White Blood Cell 6.8 10^3/uL (4.4-10.8)
--- NOTE | 2024-06-12 16:19 | DVH ---
EXAM: XR Chest, 1 View CLINICAL INDICATION: PALPATIONS TECHNIQUE: Frontal view of the chest. COMPARISON: CHEST PORTABLE on DOS: 03/21/20, CHEST PORTABLE on DOS: 03/20/20 FINDINGS: LUNGS AND PLEURAL SPACES: Unremarkable. No consolidation. No pneumothorax. HEART: Unremarkable. No cardiomegaly. MEDIASTINUM: Unremarkable. Normal mediastinal contour. BONES/JOINTS: Unremarkable. No acute fracture. TUBES, LINES AND DEVICES: Left-sided cardiac pacemaker. OTHER FINDINGS: . . . .. IMPRESSION: No acute cardiopulmonary process.
[2024-06-12 16:20] LABS: Urine Bacteria None Seen /hpf (None Seen)
[2024-06-12 16:27] LABS: Urine Blood Negative /uL (Negative); Urine Clarity Clear (Clear); Urine Color Colorless (Yellow); Urine Protein, UAD Negative (Negative); Urine Specific Gravity 1.005 (1.001-1.035); Urine Squamous Epithelial Cell None Seen /hpf (<5); Urine Urobilinogen Normal (Negative); Urine WBC < 1 /HPF (0-3); Urine pH 5.5 (5.0-9.0)
[2024-06-12 16:29] LABS: Alanine Aminotransferase 26 U/L (7-40); Albumin 4.4 g/dL (3.2-4.8); Alkaline Phosphatase 47 U/L (46-116); Anion Gap 7 (5-15); Aspartate Aminotransferase 29 U/L (13-40); BUN/Creatinine Ratio 22.7 (10.0-20.0); Bilirubin, Total 0.9 mg/dL (0.2-1.0); Blood Urea Nitrogen 20 mg/dL (9-23); Calcium 9.7 mg/dL (8.7-10.4); Carbon Dioxide 24 mmol/L (20-31); Chloride 100 mmol/L (98-107); Glucose 99 mg/dL (74-106); Potassium 4.3 mmol/L (3.5-5.1); Total Protein 6.2 g/dL (5.7-8.2)
[2024-06-12 16:36] LABS: Sodium 131 mmol/L (136-145)
[2024-06-12 18:00] VITALS: PULSE 68; RESP 15; O2SAT 96
--- NOTE | 2024-06-12 19:04 | ECG ---
[facility] Test Date: 2024-06-12 Test Time: 16:40:42 Pat Name: JILLIAN BRISENO Department: ED Room: Gender: M Soil Technician: RITO : 1955 Requested By: JEEVAN FORD Order Number: [id number] Reading MD: Breezy Silva Measurements Intervals [place] Rate: 67 P: 71 FL: 191 QRS: -25 QRSD: 101 T: 45 QT: 388 QTc: 410 Interpretive Statements Sinus rhythm Borderline left axis deviation Low voltage, extremity leads Baseline wander in lead(s) V2 Electronically Signed On 06-13-2024 9:49:40 PST by Breezy Silva Please click the below link to view image of tracing.
--- NOTE | 2024-06-13 07:26 | ECG ---
[facility] Test Date: 2024-06-12 Test Time: 15:59:19 Pat Name: JILLIAN BRISENO Department: ER Room: Gender: M Superintendent Refuse Disposal: IG : 1955 Requested By: JEEVAN FORD Order Number: [id number] Reading MD: Breezy Silva Measurements Intervals [place] Rate: 69 P: 76 IA: 191 QRS: -3 QRSD: 91 T: 50 QT: 397 QTc: 426 Interpretive Statements Sinus rhythm Borderline low voltage, extremity leads Baseline wander in lead(s) V1,V3 Electronically Signed On 06-13-2024 9:49:34 PST by Breezy Silva Please click the below link to view image of tracing.
== END 2024-06-12 18:03 | disposition home or self-care (01) ==
LOC: ER 15:45
DX: R00.2 Palpitations (principal); I48.91 Unspecified atrial fibrillation; E78.5 Hyperlipidemia, unspecified; Z79.899 Other long term (current) drug therapy; Z79.01 Long term (current) use of anticoagulants; Z95.0 Presence of cardiac pacemaker; Z98.890 Other specified postprocedural states
CPT/HCPCS: 36415; 71045; 80053; 81001; 83735; 84484; 85025; 93005

== ENCOUNTER → 2024-06-18 | Outpatient (CLI) | payer OTHER ==
[2024-06-18 06:35] LABS: Urine Bacteria None Seen /hpf (None Seen)
[2024-06-18 07:11] LABS: Basophils # (auto) 0 10 ^3/uL (0-0.2); Basophils % (auto) 0.9 % (0.0-2.0); Eosinophils # (auto) 0.1 10 ^3/uL (0-0.8); Eosinophils % (auto) 2.8 % (0.0-7.0); Hematocrit 46.8 % (41.0-53.0); Hemoglobin 16.1 g/dL (13.5-17.5); Lymphocytes % (auto) 19.6 % (10.0-50.0); Mean Corpuscular Hemoglobin 31.8 pg (28.0-32.0); Mean Corpuscular Hgb Conc. 34.4 g/dL (32.0-36.0); Mean Corpuscular Volume 92.2 fL (80.0-100.0); Monocytes # (auto) 0.4 10 ^3/uL (0-1.3); Monocytes % (auto) 9.1 % (0.0-12.0); Neutrophils # (auto) 3.3 10 ^3/uL (1.6-8.6); Neutrophils % (auto) 67.6 % (37.0-80.0); Nucleated Red Blood Cells % 0.1 %; Platelet Count (auto) 220 10^3/uL (140-450); Red Blood Cells 5.08 10^6/uL (4.5-5.90); Red Cell Distribution Width 13.5 % (11.8-14.3); White Blood Cell 4.9 10^3/uL (4.4-10.8)
[2024-06-18 07:12] LABS: Urine Blood Negative /uL (Negative); Urine Clarity Clear (Clear); Urine Color Light-Yellow (Yellow); Urine Protein, UAD Negative (Negative); Urine Specific Gravity 1.009 (1.001-1.035); Urine Squamous Epithelial Cell None Seen /hpf (<5); Urine Urobilinogen Normal (Negative); Urine pH 7.5 (5.0-9.0)
[2024-06-18 07:33] LABS: Prostate Specific Antigen 0.52 ng/mL (0.0-4.0)
[2024-06-18 07:40] LABS: Alanine Aminotransferase 22 U/L (7-40); Alkaline Phosphatase 49 U/L (46-116); Anion Gap 7 (5-15); Aspartate Aminotransferase 23 U/L (13-40); BUN/Creatinine Ratio 18.4 (10.0-20.0); Blood Urea Nitrogen 16 mg/dL (9-23); Carbon Dioxide 30 mmol/L (20-31); Chloride 101 mmol/L (98-107); Glucose 100 mg/dL (74-106); Potassium 4.3 mmol/L (3.5-5.1); Sodium 138 mmol/L (136-145)
[2024-06-18 07:42] LABS: Albumin 4.6 g/dL (3.2-4.8); Total Protein 6.7 g/dL (5.7-8.2)
[2024-06-18 07:58] LABS: Bilirubin, Total 1.3 mg/dL (0.2-1.0)
[2024-06-19 13:00] LABS: Triglycerides 46 mg/dL (< 150)
[2024-06-19 13:01] LABS: Cholesterol 129 mg/dL (< 200); LDL Cholesterol 61 mg/dL (< 100)
[2024-06-19 13:02] LABS: HDL Cholesterol 60 mg/dL (40-59)
== END | disposition home or self-care (01) ==
LOC: LAB 06:03
PROVIDERS: ATTEND Internal Medicine
DX: I10 Essential (primary) hypertension (principal); Z79.899 Other long term (current) drug therapy
CPT/HCPCS: 36415; 80053; 80061; 81001; 82043; 82306; 82607; 83036; 84153; 84443; 85025

== ENCOUNTER → 2024-08-14 | Outpatient (CLI) | payer MEDICAID ==
[2024-08-14 10:41] LABS: Chloride 102 mmol/L (98-107); Potassium 4.4 mmol/L (3.5-5.1)
[2024-08-14 10:42] LABS: Anion Gap 5 (5-15); Calcium 9.3 mg/dL (8.7-10.4); Carbon Dioxide 29 mmol/L (20-31)
[2024-08-14 10:46] LABS: Sodium 136 mmol/L (136-145)
[2024-08-14 10:47] LABS: Blood Urea Nitrogen 22 mg/dL (9-23)
[2024-08-14 10:52] LABS: Glucose 115 mg/dL (74-106)
== END | disposition home or self-care (01) ==
LOC: LAB 10:10
DX: I48.19 Other persistent atrial fibrillation (principal)
CPT/HCPCS: 36415; 80048

== ENCOUNTER 2025-01-13 14:51 | Outpatient (CLI) | payer MEDICAID ==
[2025-01-13 15:05] LABS: Hematocrit 40.9 % (41.0-53.0); Hemoglobin 14.5 g/dL (13.5-17.5); Mean Corpuscular Hemoglobin 32.4 pg (28.0-32.0); Mean Corpuscular Volume 91.7 fL (80.0-100.0); Nucleated Red Blood Cells % 0.1 %
[2025-01-13 15:20] LABS: INR 1.02 (0.9-1.15); Prothrombin Time 10.8 sec (9.3-11.8)
== END 2025-01-13 17:00 | disposition home or self-care (01) ==
LOC: LAB 14:51
PROVIDERS: ATTEND Internal Medicine
DX: Z01.812 Encounter for preprocedural laboratory examination (principal); R91.8 Other nonspecific abnormal finding of lung field
CPT/HCPCS: 36415; 85025; 85610

== ENCOUNTER 2025-01-15 09:24 | Outpatient (CLI) | payer MEDICAID ==
[2025-01-15] VITALS (9 sets, daily range): BP systolic 116–133; BP diastolic 64–91; PULSE 60; RESP 14–19; O2SAT 94–98
[2025-01-15] MEDS ORDERED: LIDOCAINE 2%HCL (LOCAL ANESTH.) INJ 10ml MDV ONE (10:00)
[2025-01-15] MEDS ORDERED: MIDAZOLAM HCL 2MG/2ML 2ml VIAL (1mg/ml) IV ONE (10:00)
[2025-01-15] MEDS ORDERED: fentaNYL CITRATE 100 MCG/2 ML VL IV ONE (10:00)
[2025-01-15] MEDS ORDERED: fentaNYL CITRATE 100 MCG/2 ML VL ONE (10:03)
[2025-01-15] MEDS ORDERED: MIDAZOLAM HCL 2MG/2ML 2ml VIAL (1mg/ml) ONE (10:03)
--- NOTE | 2025-01-15 12:57 | DVH ---
INDICATION: POST LEFT LUNG BIOPSY TECHNIQUE: Frontal view of the chest. COMPARISON: CT HI-RESOLUTION CHEST CT on DOS: 10/21/24, CT CHEST WITHOUT CONTRAST on DOS: 07/16/24, XY CHEST PORTABLE on DOS: 06/12/24, CT CHEST WITHOUT CONTRAST on DOS: 06/07/23, CHEST WITHOUT CONTRAST on D OS: 06/28/22 FINDINGS: No definite pneumothorax.. The heart and mediastinal contours are grossly unremarkable. There is no evidence of pleural disease. The lungs are clear. The bony structures of the chest are intact with out fracture. IMPRESSION: No definite pneumothorax. COPD/emphysema.
--- NOTE | 2025-01-15 13:24 | DVH ---
CT CHEST WITHOUT CONTRAST, CT CT GUIDANCE FOR NEEDLE PLACEME, HISTORY: LUNG MASS PROCEDURE: Informed consent was obtained. The patient was placed prone on the CT scanner. A limited l ocalization CT scan of the lung was obtained. The skin overlying the lesion was prepped with chlorhex idine which was allowed to dry and draped in sterile fashion. Time out was performed. The skin and so ft tissues were infiltrated with Xylocaine. With intermittent CT guidance, a 19 gauge Temno outer coa xial guiding needle was advanced into the left lung nodule. The needle position was confirmed with CT scan. 2 core biopsies were obtained using Temno inner 20 gauge biopsy needle. The specimens were sen t in formalin to pathology for analysis. A visceral blood patch was applied as the needle was withd rawn the needle was withdrawn, and post procedural CT obtained through the biopsy region. A small pn eumothorax was noted, and patient was transport to recovery in stable condition without respiratory distress. DLP = 1979 mGy-cm. FINDINGS: Limited CT scan demonstrates a soft tissue nodule in the left lower lobe and the biopsy ne edle within the margin of the lung mass. Small stable left pneumothorax. IMPRESSION/PLAN: CT guided lung biopsy. Pathology pending. Iatrogenic pneumothorax small and asymptomatic ; will follo w up CXRs . Bedrest until cleared by IR following post-biopsy CXRs.
--- NOTE | 2025-01-15 13:53 | DVH ---
INDICATION: 2 hr s/p lung bx TECHNIQUE: Frontal view of the chest. COMPARISON: XY CHEST PORTABLE on DOS: 01/15/25, CT CHEST WITHOUT CONTRAST on DOS: 01/15/25, CT CHEST WI THOUT CONTRAST on DOS: 07/16/24, XY CHEST PORTABLE on DOS: 06/12/24, CT CHEST WITHOUT CONTRAST on DOS: FINDINGS: No pneumothorax status post left lung biopsy. The heart and mediastinal contours are grossly unremark able. There is no evidence of pleural disease. The lungs are clear. The bony structures of the ch est are intact without fracture. IMPRESSION: 1. No pneumothorax status post left lung biopsy. COPD/emphysema
== END 2025-01-15 17:00 | disposition home or self-care (01) ==
LOC: CT 09:24
PROVIDERS: ATTEND Internal Medicine
DX: R91.8 Other nonspecific abnormal finding of lung field (principal); J93.83 Other pneumothorax; J43.8 Other emphysema; G47.30 Sleep apnea, unspecified; Z79.82 Long term (current) use of aspirin; Z79.899 Other long term (current) drug therapy; Z87.01 Personal history of pneumonia (recurrent); Z86.718 Personal history of other venous thrombosis and embolism; Z87.891 Personal history of nicotine dependence; Z82.49 Family history of ischemic heart disease and other diseases of the circulatory system; Z81.1 Family history of alcohol abuse and dependence; Z80.8 Family history of malignant neoplasm of other organs or systems
CPT/HCPCS: 32408; 71045; 88305; 88312; 88342; J2003; J2250; J3010; 10005; 71250; 77012

== ENCOUNTER 2025-01-17 12:37 | Inpatient (IN) | payer MEDICAID ==
[~2025-01-17] VITALS: Ht 182.9 cm; Wt 97.4 kg
--- NOTE | 2025-01-17 13:03 | ED.PDOC ---
SOB-HPI HPI Comments This is a 69 year old male presenting to the ED with chief complaint of SOB. Patient reports that he has been experiencing SOB since Monday after having a left lung biopsy performed. Patient relays that his SOB is associated with chest pain and back pain. Patient states he was diagnosed by his radiologist with pneumothorax and requires treatment at this time. Patient denies any dizziness, fever, chills, cough, or hemoptysis. Chief Complaint: Shortness of Breath Time Seen by MD: 13:00 Primary Care Provider: DOLLY Parry notes: Nurses Notes, Medications, Allergies Information Source: Patient Mode of Arrival: Wheelchair Severity: Moderate Timing: Days Duration: Since onset Context: At Rest PE Risk Factors: None History of: COPD Prehospital treatment: Oxygen Modifying Factors: Nothing Associated Signs and Symptoms: None Past Medical History PAST MEDICAL HISTORY: AFIB, COPD Surgical History: Hernia Repair, Pacemaker, Tonsillectomy Family History Family History: Reviewed,noncontributory to illness Social History Smoker: Quit Greater Than 1 Year Alcohol: Denies ETOH Use Drugs: Denies Drug Use Lives In: Home Constitutional: denies: chills, diaphoresis, fatigue, fever, malaise, sweats, weakness, others EENTM: denies: blurred vision, double vision, ear bleeding, ear discharge, ear drainage, ear pain, ear ringing, eye pain, eye redness, hearing loss, mouth pain, mouth swelling, nasal discharge, nose bleeding, nose congestion, nose pain, photophobia, tearing, throat pain, throat swelling, voice changes, others Respiratory: reports: shortness of breath; denies: cough, hemoptysis, orthopnea, SOB at rest, SOB with excertion, stridor, wheezing, others Cardiovascular: reports: chest pain; denies: dizzy spells, diaphoresis, Dyspnea on exertion, edema, irregular heart beat, left arm pain, lightheadedness, palpitations, PND, syncope, others Gastrointestinal: denies: abdomen distended, abdominal pain, blood streaked bowels, constipated, diarrhea, dysphagia, difficulty swallowing, hematemesis, melena, nausea, poor appetite, poor fluid intake, rectal bleeding, rectal pain, vomiting, others Genitourinary: denies: burning, dysuria, flank pain, frequency, hematuria, incontinence, penile discharge, penile sore, pain, testicle pain, testicle swelling, urgency, others Neurological: denies: dizziness, fainting, headache, left sided numbness, left sided weakness, numbness, paresthesia, pre-existing deficit, right sided numbness, right sided weakness, seizure, speech problems, tingling, tremors, weakness, others Musculoskeletal: denies: back pain, gout, joint pain, joint swelling, muscle pain, muscle stiffness, neck pain, others Integumetry: denies: bruises, change in color, change in hair/nails, dryness, laceration, lesions, lumps, rash, wounds, others Allergic/Immunocompromised: denies: Difficulty Healing, Frequent Infections, Hives, Itching, others Hematologic/Lymphatic: denies: anemia, blood clots, easy bleeding, easy bruising, swollen glands, others Endocrine: denies: excessive hunger, excessive sweating, excessive thirst, excessive urination, flushing, intolerance to cold, intolerance to heat, unexplained weight gain, unexplained weight loss, others Psychiatric: denies: anxiety, bipolar disorder, depression, hopeless, panic disorder, schizophrenia, sleepless, suicidal, others All Other Systems: Reviewed and Negative Physical Exam General Appearance: Moderate Distress, Normal HEENT: Normal ENT Inspection, Pharynx Normal, TMs Normal Neck: Full Range of Motion, Non-Tender, Normal, Normal Inspection Respiratory: Chest Non-Tender, Decreased Breath Sounds (Left lung), No Accessory Muscle Use, No Respiratory Distress Cardiovascular: No Edema, No JVD, No Murmur, No Gallop, Normal Peripheral Pulses, Regular Rate/Rhythm Breast Exam: Deferred Gastrointestinal: No Organomegaly, Non Tender, No Pulsatile Mass, Normal Bowel Sounds, Soft Genitalia: Deferred Pelvic: Deferred Rectal: Deferred Extremities: No calf tenderness, Normal capillary refill, Normal inspection, Normal range of motion, Non-tender, No pedal edema Musculoskeletal : Apperance: Normal Neurologic: Alert, zigzag tunnel elastic operator II-XII nml as Tested, No Motor Deficits, Normal Affect, Normal Mood, No Sensory Deficits Cerebellar Function: Normal Reflexes: Normal Skin: Dry, Normal Color, Warm Peripheral Pulses: 3+ Radial (R), 3+ Radial (L) Lymphatic: No Adenopathy Was a procedure done? Was a procedure done?: No Differential Dx Differential Diagnosis: Anxiety, Asthma, Bronchitis, CHF, COPD X-Ray, Labs, Meds, VS Vital Signs Date Time Temp Pulse Resp B/P (MAP) Pulse Ox O2 Delivery O2 Flow Rate FiO2 01/17/25 12:40 98.1 79 16 141/80 96 98.1 Lab Test 01/17/25 16:11 01/17/25 14:28 01/17/25 13:19 Range/Units Urine Color Colorless Yellow Urine Clarity Clear Clear Urine pH 6.5 5.0-9.0 Urine Specific [place] 1.008 1.001-1.035 Urine Protein Negative Negative Urine Ketones Negative Negative Urine Blood Negative Negative /uL Urine Nitrite Negative Negative Urine Bilirubin Negative Negative Urine Urobilinogen Normal Negative mg/dL Urine Leukocyte Esterase Negative Negative /uL Urine RBC <1 0 - 3 /hpf Urine Microscopic WBC 1 0-3 /HPF Urine Squamous Epithelial Cells None seen <5 /hpf Urine Bacteria None seen None Seen /hpf Urine Glucose Normal Normal mg/dL Troponin I High Sensitivity < 3 L < 3 L </=54 ng/L White Blood Count 5.8 4.4-10.8 10^3/uL Red Blood Count 4.69 4.5-5.90 10^6/uL Hemoglobin 15.4 13.5-17.5 g/dL Hematocrit 43.4 41.0-53.0 % Mean Corpuscular Volume 92.6 80.0-100.0 fL Mean Corpuscular Hemoglobin 32.7 H 28.0-32.0 pg Mean Corpuscular Hemoglobin Concent 35.4 32.0-36.0 g/dL Red Cell Distribution Width 13.4 11.8-14.3 % Platelet Count 190 140-450 10^3/uL Mean Platelet Volume 7.7 6.9-10.8 fL Neutrophils (%) (Auto) 72.0 37.0-80.0 % Lymphocytes (%) (Auto) 18.0 10.0-50.0 % Monocytes (%) (Auto) 7.4 0.0-12.0 % Eosinophils (%) (Auto) 2.0 0.0-7.0 % Basophils (%) (Auto) 0.6 0.0-2.0 % Neutrophils # (Auto) 4.2 1.6-8.6 10 ^3/uL Lymphocytes # (Auto) 1.0 0.4-5.4 10 ^3/uL Monocytes # (Auto) 0.4 0-1.3 10 ^3/uL Eosinophils # (Auto) 0.1 0-0.8 10 ^3/uL Basophils # (Auto) 0 0-0.2 10 ^3/uL Nucleated Red Blood Cells 0.1 % Sodium Level 140 136-145 mmol/L Potassium Level 4.1 3.5-5.1 mmol/L Chloride Level 105 98-107 mmol/L Carbon Dioxide Level 28 20-31 mmol/L Anion Gap 7 5-15 Blood Urea Nitrogen 11 9-23 mg/dL Creatinine 0.87 0.700-1.30 mg/dL Glomerular Filtration Rate Calc 94 >90 mL/min BUN/Creatinine Ratio 12.6 10.0-20.0 Serum Glucose 132 H 74-106 mg/dL Calcium Level 9.0 8.7-10.4 mg/dL Patient alert. Vitals stable. Decreased breath sounds in the left side. Vitals stable. Chest x-ray reviewed does show left pneumothorax. Blood sugar elevated. Explained to the patient. Continue monitoring. Time of 1ST Reevaluation: 13:59 Reevaluation 1ST: Unchanged Patient Education/Counseling: Diagnosis, Treatment Family Education/Counseling: No Family Present SEPSIS Sepsis Screen Date sepsis recognized/suspect: Jan 17, 2025 Time Sepsis recognized/suspect: 1243 Recent Procedure: No On Antibiotic Therapy: No Respiratory Rate >20: No Heart Rate >90: No Temp<36 C (96.8 F) or >38.3 C: No SBP <90 or MAP <65 mmHG: No New Acute Mental Status Change: No Is the patient on CPAP, BIPAP,: No Physician Orders Chest Portable (01/17/25 12:52) Troponin-I Hs (01/17/25 15:52) Vital Signs Date Time Temp Pulse Resp B/P (MAP) Pulse Ox O2 Delivery O2 Flow Rate FiO2 01/17/25 12:40 98.1 79 16 141/80 96 98.1 Laboratory Tests Test 01/17/25 13:19 White Blood Count 5.8 10^3/uL (4.4-10.8) Departure 1 Departure Time of Disposition: 16:33 Impression: Primary Impression: Pneumothorax, left Disposition: 09 ADMITTED INPATIENT Admit to: Med Surg Condition: Guarded Critical Care Note Critical Care Time?: Yes (90 min-critical care time only) Stability Stability form required: No Heart Score Heart Score: Heart Score Response (Comments) Value History N/A 0 EKG N/A 0 Age N/A 0 Risk Factors N/A 0 Troponin N/A 0 Total 0 I personally scribed for JEEVAN FORD MD ([email or web address]) on 01/17/25 at 13:03. Electronically submitted by Star Reed [email or web address]). JEEVAN FORD MD Jan 17, 2025 13:03
[2025-01-17 13:43] LABS: Hematocrit 43.4 % (41.0-53.0); Hemoglobin 15.4 g/dL (13.5-17.5); Mean Corpuscular Hemoglobin 32.7 pg (28.0-32.0); Mean Corpuscular Volume 92.6 fL (80.0-100.0); Nucleated Red Blood Cells % 0.1 %
[2025-01-17 13:53] LABS: Chloride 105 mmol/L (98-107); Potassium 4.1 mmol/L (3.5-5.1); Sodium 140 mmol/L (136-145)
[2025-01-17 13:54] LABS: Anion Gap 7 (5-15); Carbon Dioxide 28 mmol/L (20-31)
[2025-01-17 13:55] LABS: Calcium 9.0 mg/dL (8.7-10.4)
[2025-01-17 14:00] LABS: BUN/Creatinine Ratio 12.6 (10.0-20.0); Blood Urea Nitrogen 11 mg/dL (9-23)
[2025-01-17 14:01] LABS: Glucose 132 mg/dL (74-106)
--- NOTE | 2025-01-17 15:04 | DVH ---
CHEST RADIOGRAPH REASON FOR EXAM: Shortness of breath COMPARISON: XY CHEST PORTABLE on DOS: 01/15/25, XY CHEST PORTABLE on DOS: 01/15/25, CT CHEST WITHOUT CO NTRAST on DOS: 01/15/25, CT HI-RESOLUTION CHEST CT on DOS: 10/21/24, CT CHEST WITHOUT CONTRAST on DOS: 07/16/24 TECHNIQUE: One view of the chest is provided FINDINGS: The cardiomediastinal silhouette is within normal limits for technique. There is a 2 lead c ardiac pacer. There is small to moderate-sized left pneumothorax (approximately 30%). The right costo phrenic sulcus is excluded from view. There is diffuse interstitial prominence. No definite airspace disease is identified within the limitations of the study. There is no significant pleural effusion. IMPRESSION: Small to moderate-sized left pneumothorax. Pneumothorax Critical Result: Pneumothorax Findings discussed with JEEVAN FORD at 01/17/2025 03:01 PM pacific time, and acknowledged rece ipt and understanding of the findings. #CRITICAL#
[2025-01-17 16:26] LABS: Urine Protein, UAD Negative (Negative)
[2025-01-17 16:40] VITALS: PULSE 60; RESP 16; O2SAT 98
[2025-01-17] MEDS: MORPHINE SULFATE 4 MG/ML SYR/VIAL IV ONE (17:01)
[2025-01-17] MEDS: ONDANSETRON HCL 4 MG/2 ML VIAL IV ONE (17:02)
--- NOTE | 2025-01-17 17:44 | DVH ---
CHEST RADIOGRAPH Indication: s/p thora vent placement Technique: XY CHEST XRAY 1 VIEW COMPARISON: 01/17/2025 FINDINGS: Left thoracic vent device. Decreased size of the left pneumothorax, approximately 20% now . No mediastinal shift. The cardiac silhouette is unremarkable. Left chest dual lead cardiac pacing device.. The lungs demon strate bilateral patchy airspace opacities. The pulmonary vasculature is prominent. Small left pleura l effusion.. IMPRESSION: As above.
[2025-01-17] MEDS ORDERED: MORPHINE SULFATE INJ 2 MG/ml SYRG IV ONE (18:00)
--- NOTE | 2025-01-17 18:08 | DVHHPRES ---
History of Present Illness Resident Creating Document: JO ANN LINDSAY RESIDENT History of Present Illness Michael Llanos this is a 69-year-old male patient who presents to ED with chief complaint of progressive dyspnea from Functional Class I to Functional Class IV which started 48 hours before him since admission, triggered by lung biopsy which was completed on 01/15/2025, associated with sharp back pain in incision site. ED visit was prompted due to dyspnea at rest. Denies fever, chills, chest pain, productive cough, and other associated symptoms. Past medical history: Sick sinus syndrome status post pacemaker, atrial fibrillation status post ablation (chads Vasc 1) status post Watchman placement, COPD with no oxygen requirement, lung nodule status post lung biopsy on 01/15/2025, multiple episodes of ileus with no route surgeries required, multiple hernia with hernia repairs, chronic back pain, DVT and PE in 2009 Surgical history: Permanent pacemaker 03/2020, hernia repair x6 times, watchman placement on 08/2023, ablation on 12/2022, spinal fusion in 06/2023, multiple colonoscopies which are all negative every five years, last one was month ago pending biopsy results Family history: Mother had liver cancer, brother had leukemia Social history: Lives in [place] alone (next of kin is sister). Ex tobacco abuse (70 pack-year history of smoking) quit in 2009, ex ethanol abuse (quarter of a pt of whiskey everyday) quit in 1998. Denies current tobacco, alcohol and other drug abuse Allergies: Denies Home medication: Albuterol, atorvastatin, aspirin, hydrochlorothiazide (he takes this for his leg swelling), baclofen, sildenafil PRN Patient seen and examined at bedside. Currently he is status post chest tube placement in left upper hemithorax. No new complaints. Past Medical History Per HPI Past Surgical History Per HPI Family History Per HPI Past Social History Per HPI Review of Systems Review of Systems Per HPI Allergies: Coded Allergies: NO KNOWN ALLERGIES (Verified , 03/23/22) Exam Vital Signs Vital Signs Date Time Temp Pulse Resp B/P (MAP) Pulse Ox O2 Delivery O2 Flow Rate FiO2 01/17/25 17:30 60 21 126/84 01/17/25 17:29 98 01/17/25 16:40 Nasal Cannula* 4 36 01/17/25 16:35 98.1 98.1 Exam Patient lying in bed, in no acute distress General: Lucid, afebrile, mucosae are moist Cardiovascular: Normal S1 and S2. No murmurs, gallops or rubs Respiratory: Normal ventilation mechanics. Reduced lung sounds on left hemithorax, rest of lung sounds within normal limits. Presents left chest tube in right upper hemithorax Abdomen: Soft, nontender, no organomegaly, normal bowel sounds MSK/skin: Mobilizes 4 limbs. Skin is dry and warm. Pacemaker scar in left hemithorax Neurological: Oriented in 3 spheres. No motor no sensitive deficits. Pupils are isocoric and reactive Labs/Xrays Labs Test 01/17/25 16:27 01/17/25 16:11 01/17/25 13:19 Range/Units Troponin I High Sensitivity 3 L </=54 ng/L Urine Color Colorless Yellow Urine Clarity Clear Clear Urine pH 6.5 5.0-9.0 Urine Specific [place] 1.008 1.001-1.035 Urine Protein Negative Negative Urine Ketones Negative Negative Urine Blood Negative Negative /uL Urine Nitrite Negative Negative Urine Bilirubin Negative Negative Urine Urobilinogen Normal Negative mg/dL Urine Leukocyte Esterase Negative Negative /uL Urine RBC <1 0 - 3 /hpf Urine Microscopic WBC 1 0-3 /HPF Urine Squamous Epithelial Cells None seen <5 /hpf Urine Bacteria None seen None Seen /hpf Urine Glucose Normal Normal mg/dL White Blood Count 5.8 4.4-10.8 10^3/uL Red Blood Count 4.69 4.5-5.90 10^6/uL Hemoglobin 15.4 13.5-17.5 g/dL Hematocrit 43.4 41.0-53.0 % Mean Corpuscular Volume 92.6 80.0-100.0 fL Mean Corpuscular Hemoglobin 32.7 H 28.0-32.0 pg Mean Corpuscular Hemoglobin Concent 35.4 32.0-36.0 g/dL Red Cell Distribution Width 13.4 11.8-14.3 % Platelet Count 190 140-450 10^3/uL Mean Platelet Volume 7.7 6.9-10.8 fL Neutrophils (%) (Auto) 72.0 37.0-80.0 % Lymphocytes (%) (Auto) 18.0 10.0-50.0 % Monocytes (%) (Auto) 7.4 0.0-12.0 % Eosinophils (%) (Auto) 2.0 0.0-7.0 % Basophils (%) (Auto) 0.6 0.0-2.0 % Neutrophils # (Auto) 4.2 1.6-8.6 10 ^3/uL Lymphocytes # (Auto) 1.0 0.4-5.4 10 ^3/uL Monocytes # (Auto) 0.4 0-1.3 10 ^3/uL Eosinophils # (Auto) 0.1 0-0.8 10 ^3/uL Basophils # (Auto) 0 0-0.2 10 ^3/uL Nucleated Red Blood Cells 0.1 % Sodium Level 140 136-145 mmol/L Potassium Level 4.1 3.5-5.1 mmol/L Chloride Level 105 98-107 mmol/L Carbon Dioxide Level 28 20-31 mmol/L Anion Gap 7 5-15 Blood Urea Nitrogen 11 9-23 mg/dL Creatinine 0.87 0.700-1.30 mg/dL Glomerular Filtration Rate Calc 94 >90 mL/min BUN/Creatinine Ratio 12.6 10.0-20.0 Serum Glucose 132 H 74-106 mg/dL Calcium Level 9.0 8.7-10.4 mg/dL SEPSIS Sepsis Screen Date sepsis recognized/suspect: Jan 17, 2025 Time Sepsis recognized/suspect: 1243 Recent Procedure: No On Antibiotic Therapy: No Respiratory Rate >20: No Heart Rate >90: No Temp<36 C (96.8 F) or >38.3 C: No SBP <90 or MAP <65 mmHG: No New Acute Mental Status Change: No Is the patient on CPAP, BIPAP,: No Physician Orders Chest Portable (01/17/25 12:52) Chest Xray 1 View (01/17/25 17:06) Chest Tube Set Up (01/17/25 ) Chest Tube Insertion Left (01/17/25 17:29) Chest Tube To [place] (01/17/25 17:29) Drain To Suction (01/17/25 17:29) Admit (01/17/25 18:02) Code Status (01/17/25 18:02) Vital Signs .PER UNIT PROTOCOL (01/17/25 18:02) Review Orders With Adm. (01/17/25 18:02) Npo (Nothing By Mouth) Diet (01/17/25 Dinner) Notify Md Of Changes From Base (01/17/25 18:02) Advance Directive (01/17/25 18:02) Chest Two Views Routine (01/18/25 04:00) Echo 2d Mode Cardiac Dop (01/17/25 18:02) Patient Condition (01/17/25 18:02) Allergies (01/17/25 18:02) Ondansetron Hcl (Zofran) (01/17/25 18:15) Morphine 2mg Iv Q4hprn (01/17/25 18:15) Lovenox 40mg (01/18/25 10:00) Oxygen By Nasal Cannula (01/17/25 18:02) Stat Ekg For Chest Pain (01/17/25 18:02) Notify Md Of Changes From Base (01/17/25 18:02) Parts Sales Manager For 24 Hours (01/17/25 18:02) Emergency Dysrhythmia Protocol (01/17/25 18:02) Rhythm Strips Once Every Shift (01/17/25 18:02) *Consult / (01/17/25 18:02) Chest Without Contrast (01/18/25 04:00) Vital Signs Date Time Temp Pulse Resp B/P (MAP) Pulse Ox O2 Delivery O2 Flow Rate FiO2 01/17/25 17:30 60 21 126/84 01/17/25 17:29 60 21 126/84 (98) 98 01/17/25 17:01 60 15 147/86 01/17/25 16:40 60 16 98 Nasal Cannula* 4 36 01/17/25 16:35 98.1 60 18 115/71 (86) 97 98.1 01/17/25 12:40 98.1 79 16 141/80 96 98.1 Laboratory Tests Test 01/17/25 13:19 White Blood Count 5.8 10^3/uL (4.4-10.8) Medications Medications Dose Ordered Sig/Angelica Route Start Time Stop Time Status Last Admin Dose Admin Morphine Sulfate 4 mg ONCE ONCE IV 01/17/25 16:45 01/17/25 16:46 DC 01/17/25 17:01 4 MG Ondansetron HCl 4 mg ONCE ONCE IV 01/17/25 16:45 01/17/25 16:46 DC 01/17/25 17:02 4 MG Assessment/Plan Assessment/Plan Acute respiratory failure Pneumothorax post lung biopsy - status post left chest tube placement Lung nodule status post lung biopsy COPD with no exacerbation Patient urgent to placement in ED repeat chest CT showed mildly of pneumothorax Consulted pulmonology Ordered chest CT with no contrast for 01/18/2025 Sick sinus syndrome status post pacemaker placement in 2019 Paroxysmal atrial fibrillation (chads Vasc 1)-status post ablation in 2022 and Watchman device placement in 2023 History of DVT and PE in 2009 Patient is currently on aspirin, no blood thinners after Watchman device placement. Ordered EKG Troponin x3 negative Chronic back pain status post lower back surgery Optimize pain therapy History of polysubstance abuse (tobacco and ethanol) Patient quit tobacco in 2009 and ethanol 1998. He has a 70 pack-year history of smoking Consider completed as outlined patient to rule out aortic aneurysm Recent diagnosis of lung nodules, status post biopsy on 01/15/2025 Goals of care discussed with patient for over 18 minutes: Full code status Discussed plan with Dr. Guzman, patient and nurses: Patient has no new complaints, currently has chest tube on suction. Ordered pulmonology consult, and pending chief CT with no contrast on 01/18/2025. Patient has poor prognosis. Plan discussed with: Patient, Other (Nurses) My Orders Orders - JO ANN LINDSAY RESIDENT Procedure Category Date Status Time Admit ADMIT 01/17/25 Verified 18:02 Code Status CODE 01/17/25 Verified 18:02 Vital Signs [facility] 01/17/25 Verified 18:02 Review Orders With [facility] 01/17/25 Verified Adm. 18:02 Npo (Nothing By DIET 01/17/25 Verified Mouth) Diet Dinner Notify Of Changes [facility] 01/17/25 Verified From Base 18:02 Advance Directive [facility] 01/17/25 Verified 18:02 Chest Two Views XY 01/18/25 Verified Routine 04:00 Echo 2d Mode Cardiac US 01/17/25 Verified DOP 18:02 Patient Condition ORDERS 01/17/25 Verified 18:02 Allergies [facility] 01/17/25 Verified 18:02 Ondansetron Hcl PHA 01/17/25 Verified (Zofran) 18:15 Morphine 2mg Iv Q4hprn PHA 01/17/25 Verified 18:15 Lovenox 40mg PHA 01/18/25 Verified 10:00 Oxygen By Nasal RT 01/17/25 Verified Cannula 18:02 Stat Ekg For Chest [facility] 01/17/25 Verified Pain 18:02 Notify Md Of Changes [facility] 01/17/25 Verified From Base 18:02 Parts Sales Manager For [facility] 01/17/25 Verified 24 Hours 18:02 Emergency Dysrhythmia [facility] 01/17/25 Verified Protocol 18:02 Rhythm Strips Once [facility] 01/17/25 Verified Every Shift 18:02 *Consult CONS 01/17/25 Verified / 18:[address] 01/18/25 Verified 04:00 Date of Service: Jan 17, 2025 Billing Provider: SANDY GUZMAN MD Common Visit Codes: 16592-[id number] INP/OBS CARE (HIGH) Secondary Visit Codes: [id number] CARE PLAN 30 MINUTES JO ANN LINDSAY RESIDENT Jan 17, 2025 18:08
[2025-01-17] MEDS ORDERED: ONDANSETRON HCL 4 MG/2 ML VIAL IV PRN (18:15)
[2025-01-17] MEDS: HYDROmorphone HCL 2 MG/ML VL/or syr IV ONE (18:22)
[2025-01-17 19:28] LABS: Alanine Aminotransferase 21.0 U/L (7-40); Albumin 4.2 g/dL (3.2-4.8); Cholesterol 118.0 mg/dL (< 200); Magnesium 2.2 mg/dL (1.6-2.6); Total Protein 6.5 g/dL (5.7-8.2); Triglycerides 56.0 mg/dL (< 150)
[2025-01-17 19:29] LABS: Bilirubin, Direct 0.2 mg/dL (<0.3); Bilirubin, Total 1.0 mg/dL (0.2-1.0); HDL Cholesterol 50.0 mg/dL (40-59)
[2025-01-17 19:31] LABS: Alkaline Phosphatase 40.0 U/L (46-116)
[2025-01-17 20:01] LABS: Amphetamine Screen, Urine Neg (NEGATIVE); Barbiturate Scree,Urine Neg (NEGATIVE); Cannabinoid Screen, Urine Neg (NEGATIVE); Cocaine Screen, Urine Neg (NEGATIVE); Opiate Scree,Urine Neg (NEGATIVE); Phencyclidine Screen, Urine Neg (NEGATIVE)
[2025-01-17 21:05] LABS: COVID19 ANTIGEN SOFIA FIA NEGATIVE (NEGATIVE)
[2025-01-17 21:29] LABS: Benzodiazephine Screen, Urine Neg (NEGATIVE)
[2025-01-17 22:44] VITALS: PULSE 60; RESP 17; O2SAT 93
[2025-01-17] MEDS: MORPHINE SULFATE INJ 2 MG/ml SYRG IV PRN (23:22)
[2025-01-18] VITALS (9 sets, daily range): BP systolic 100–134; BP diastolic 58–84; PULSE 58–78; RESP 16–19; TEMP 96.5–98.6; O2SAT 93–98
[2025-01-18] MEDS ORDERED: ASPI1TAB20 PO ×2 (01:19)
[2025-01-18] MEDS ORDERED: BACL20TA PO ×2 (01:19)
[2025-01-18] MEDS ORDERED: PNEUMOCOCCAL VACC POLYS 25 MCG/0.5 ML VIAL IM ONE (02:45)
--- NOTE | 2025-01-18 06:48 | DVH ---
CHEST RADIOGRAPH Indication: CHEST TUBE PLACEMENT Technique: Single frontal view of the chest was obtained COMPARISON: XY CHEST XRAY 1 VIEW on DOS: 01/17/25, XY CHEST PORTABLE on DOS: 01/17/25, XY CHEST PORTABL E on DOS: 01/15/25, XY CHEST PORTABLE on DOS: 01/15/25, CT CHEST WITHOUT CONTRAST on DOS: 01/15/25 FINDINGS: Lines and Tubes: Interval retraction of left hemithoracic Thoravent with approximately 2.9 cm of the catheter tip in-situ. Lungs: Minimal patchy right basilar pulmonary airspace disease. The lungs are otherwise clear. Pleura: No effusion. No pneumothorax. Cardiomediastinal contours: Unremarkable Bones: Unremarkable IMPRESSION: 1. Interval retraction of left hemithoracic Thoravent with approximately 2.9 cm of the catheter tip i n-situ. 2. Mild patchy right basilar pulmonary airspace disease.
[2025-01-18 08:17] LABS: Hematocrit 43.9 % (41.0-53.0); Hemoglobin 15.7 g/dL (13.5-17.5); Mean Corpuscular Hemoglobin 33.2 pg (28.0-32.0); Mean Corpuscular Volume 92.9 fL (80.0-100.0); Nucleated Red Blood Cells % 0.1 %
[2025-01-18 08:25] LABS: Chloride 104 mmol/L (98-107); Potassium 4.1 mmol/L (3.5-5.1); Sodium 140 mmol/L (136-145)
[2025-01-18 08:26] LABS: Anion Gap 8 (5-15); Carbon Dioxide 28 mmol/L (20-31)
[2025-01-18 08:27] LABS: Calcium 9.0 mg/dL (8.7-10.4)
[2025-01-18 08:31] LABS: BUN/Creatinine Ratio 12.0 (10.0-20.0); Blood Urea Nitrogen 10 mg/dL (9-23); Glucose 105 mg/dL (74-106)
--- NOTE | 2025-01-18 09:36 | DVH ---
Procedure: CT CHEST WITHOUT CONTRAST Reason for study/Clinical History: Pneumothorax post lung biopsy Comparison Study: CT CHEST WITHOUT CONTRAST on DOS: 01/15/25, CT HI-RESOLUTION CHEST CT on DOS: 5, CT CHEST WITHOUT CONTRAST on DOS: 07/16/24 Exam Date: 01/18/2025 09:00 AM TECHNIQUE: Multidetector CT of the chest was performed from the lung apices to the upper abdomen with out the use of intravenous contract. Axial, coronal and sagittal multiplanar reformats were performed . Radiation Dose Information: CT Dose: CTDI volume is 14 mGy. Dose-length product is 591 mGy*cm The dose indicators for CT are the volume Computed Tomography (CT) Dose Index (CTDIvol) and the Dose Length Product (DLP), and are measured in units of mGy and mGy-cm, respectively. These indicators are not patient dose, but values generated from the CT scanner acquisition factors. The report includes radiation exposure data for exposures received during this examination. FINDINGS: Lower neck: Normal thyroid. Lungs: There is a ill-defined nodular density present in the superior segment of the left lower lobe. There is pulmonary hyperexpansion Subpleural blebs or bullae in the bases. Heart/Vascular Structures: Normal heart size. No pericardial effusion. There is a left atrial exclusi on device. Pacer leads in the heart. Lymph Nodes: No adenopathy Pleura: No pleural effusion or significant pneumothorax. Musculoskeletal: No acute osseous abnormality. Soft tissues: Normal. Upper abdomen: Limited portions of the upper abdomen are unremarkable except for large left renal cys t and small hepatic cysts.. Except IMPRESSION: 1. No evidence of pneumothorax following lung biopsy. 2. Left lower lobe mass as on previous CT. There is now minimal pleural thickening in this region mos t likely due to recent hemorrhage following biopsy Radiation optimization: All CT scans at this facility use at least one of these dose optimization ryley hniques: automated exposure control mA and/or kV adjustment per patient size (includes targeted exam s where dose is matched to clinical indication) or iterative reconstruction.
--- NOTE | 2025-01-18 09:41 | DVH ---
Chest x-ray Technique: PA and lateral views Comparison: 01/18/2025 CLINICAL INDICATION: Pneumothorax FINDINGS: Heart size is normal. Pacer leads in the heart. The aorta is tortuous. No infiltrates or e ffusions. No pneumothorax. There is a small caliber left-sided chest tube present. Degenerative stack es in the spine IMPRESSION: 1. No pneumothorax seen
[2025-01-18] MEDS: ENOXAPARIN SOD 40 MG/0.4 ML SYRINGE SC SCH (09:51)
--- NOTE | 2025-01-18 12:34 | DVHINCON2 ---
Date Seen: Jan 18, [address] Newell Reason for Consultation Left pneumothorax, iatrogenic History of Present Illness 69-year-old man history of sick sinus syndrome status post pacemaker, atrial fibrillation status post ablation, status post Watchman placement, COPD, pulmonary nodule status post biopsy January 15, 2025, multiple episodes of ileus, multiple hernia with hernia repairs, chronic back pain, deep vein thrombosis, pulmonary embolism in 2009 who presented to the emergency department with a chief complaint of shortness of breath and dyspnea. He recently had a lung biopsy on January 15, 2025 and had a sharp back pain since date of procedure. No fever or chills. No chest pain or palpitations. Productive cough. Chest x-ray demonstrated left pneumothorax. Pulmonary consultation is called for evaluation of iatrogenic left pneumothorax and chest tube management. Review of systems: 14 point review of systems is negative unless otherwise noted above. Past medical history: COPD, atrial fibrillation, sick sinus syndrome, pulmonary nodule, deep vein thrombosis and pulmonary embolism Past surgical history: Pacemaker placement, hernia repair x6, Watchman procedure, ablation, spinal fusion, multiple colonoscopies Medications: Reviewed. Albuterol, atorvastatin, aspirin, hydrochlorothiazide, baclofen, sildenafil as needed Allergies: No known drug allergies. Family history: No family history of premature CAD. No family history of lung disease. Mother had liver cancer, brother had leukemia Social history: Lives in his [facility] alone. Ex-smoker. Seventy pack smoking history. Quit smoking in 2009. Ex alcohol abuse. Quit in 1998. Family History: Alcoholism FH: atrial fibrillation G8 FATHER FH: cancer G8 MOTHER Allergies: Coded Allergies: NO KNOWN ALLERGIES (Verified , 03/23/22) Home Meds Reported Medications Aspirin (Aspir-81) 81 Mg Tab, 1 TAB PO DAILY, #30 TAB 5 Refills 01/18/25 Baclofen (Baclofen) 20 Mg Tab, 1 TAB PO TID, #90 TAB 01/18/25 Hctz (Hydrochlorothiazide) 25 Mg Tab, 12.5 MG PO DAILY, TAB 06/06/23 Sildenafil Citrate (Viagra) 50 Mg Tab, 50 MG PO UD, TAB 06/06/23 Albuterol Sulfate (Albuterol Sulfate) 0.083 % Neb, 0.083 % IN Use 1 vial via nebulizer every 6 hours as needed 06/06/23 Discontinued Reported Medications Gabapentin (Gabapentin) 300 Mg Cap, 300 MG PO HS, CAP 06/06/23 Atorvastatin Calcium (Lipitor) 10 Mg Tab, 1 TAB PO QPM for DYSLIPIDEMIA, #90 TAB 3 Refills 03/23/22 Apixaban Base (ELIQUIS) 5 Mg Tab, 5 MG PO BID for A.FIB, TAB 03/23/22 Current Medications Current Medications Medications (Trade) Dose Ordered Sig/Angelica Route PRN Reason Start Time Stop Time Status Last Admin Ondansetron HCl (Zofran) 4 mg Q4HP PRN IV NAUSEA / VOMITING 01/17/25 18:15 Morphine Sulfate 2 mg Q4HPRN PRN IV SEVERE PAIN (7-10 PAIN SCALE) 01/17/25 18:15 01/18/25 05:56 Enoxaparin Sodium (Lovenox) 40 mg DAILY SC 01/18/25 10:00 01/18/25 09:51 Vital Signs Vital Signs Date Time Temp Pulse Resp B/P (MAP) Pulse Ox O2 Delivery O2 Flow Rate FiO2 01/18/25 08:39 98.6 65 18 129/83 (98) 95 98.6 01/18/25 07:35 Nasal Cannula* 3 32 Physical Exam Gen.: Patient lying in bed in no apparent distress. On supplemental oxygen. Head: Normocephalic, atraumatic Eyes: EOMI/PERRLA. Ears: Normal hearing. Normal anatomy. Neck/trachea: Trachea midline, supple. Nose: Normal external anatomy. Mouth: Moist mucous membranes. Chest: Decreased air entry bilaterally. No wheezing or rhonchi. Left ThoraVent in place Cardio vascular: Positive S1, positive S2. Regular rate and rhythm. Abdomen: Positive bowel sounds in all 4 quadrants. Soft, non-tender, non- distended. : Deferred. Rectal: Deferred Skin: Warm, dry. Extremities: 2+ radial pulses bilaterally. No lower extremity edema. Neuro: Awake, alert, oriented x3. No gross motor or sensory deficits. Cranial nerves II through XII intact. Gait not assessed. Labs/Diagnostic Data Labs Test 01/18/25 08:02 01/17/25 19:50 01/17/25 16:27 01/17/25 16:11 Range/Units White Blood Count 7.1 4.4-10.8 10^3/uL Red Blood Count 4.73 4.5-5.90 10^6/uL Hemoglobin 15.7 13.5-17.5 g/dL Hematocrit 43.9 41.0-53.0 % Mean Corpuscular Volume 92.9 80.0-100.0 fL Mean Corpuscular Hemoglobin 33.2 H 28.0-32.0 pg Mean Corpuscular Hemoglobin Concent 35.8 32.0-36.0 g/dL Red Cell Distribution Width 13.4 11.8-14.3 % Platelet Count 184 140-450 10^3/uL Mean Platelet Volume 7.5 6.9-10.8 fL Neutrophils (%) (Auto) 73.7 37.0-80.0 % Lymphocytes (%) (Auto) 14.1 10.0-50.0 % Monocytes (%) (Auto) 10.1 0.0-12.0 % Eosinophils (%) (Auto) 1.6 0.0-7.0 % Basophils (%) (Auto) 0.5 0.0-2.0 % Neutrophils # (Auto) 5.2 1.6-8.6 10 ^3/uL Lymphocytes # (Auto) 1.0 0.4-5.4 10 ^3/uL Monocytes # (Auto) 0.7 0-1.3 10 ^3/uL Eosinophils # (Auto) 0.1 0-0.8 10 ^3/uL Basophils # (Auto) 0 0-0.2 10 ^3/uL Nucleated Red Blood Cells 0.1 % Sodium Level 140 136-145 mmol/L Potassium Level 4.1 3.5-5.1 mmol/L Chloride Level 104 98-107 mmol/L Carbon Dioxide Level 28 20-31 mmol/L Anion Gap 8 5-15 Blood Urea Nitrogen 10 9-23 mg/dL Creatinine 0.83 0.700-1.30 mg/dL Glomerular Filtration Rate Calc 95 >90 mL/min BUN/Creatinine Ratio 12.0 10.0-20.0 Serum Glucose 105 74-106 mg/dL Calcium Level 9.0 8.7-10.4 mg/dL Influenza Type A Antigen Negative Negative Influenza Type B Antigen Negative Negative SARS-CoV-2 Antigen (Rapid) Negative NEGATIVE Phosphorus Level 3.7 2.4-5.1 mg/dL Magnesium Level 2.2 1.6-2.6 mg/dL Total Bilirubin 1.0 0.2-1.0 mg/dL Direct Bilirubin 0.2 <0.3 mg/dL Aspartate Amino Transferase (AST) 26 13-40 U/L Alanine Aminotransferase (ALT) 21 7-40 U/L Alkaline Phosphatase 40 L 46-116 U/L Troponin I High Sensitivity 3 L </=54 ng/L Total Protein 6.5 5.7-8.2 g/dL Albumin 4.2 3.2-4.8 g/dL Triglycerides Level 56 < 150 mg/dL Cholesterol Level 118 < 200 mg/dL LDL Cholesterol 59 < 100 mg/dL HDL Cholesterol 50 40-59 mg/dL Vitamin B12 Level 365 211-911 pg/mL Vitamin D 25-Hydroxy 35.5 30.0-100 ng/mL Thyroid Stimulating Hormone (TSH) 2.49 0.55-4.78 uIU/mL Urine Color Colorless Yellow Urine Clarity Clear Clear Urine pH 6.5 5.0-9.0 Urine Specific [place] 1.008 1.001-1.035 Urine Protein Negative Negative Urine Ketones Negative Negative Urine Blood Negative Negative /uL Urine Nitrite Negative Negative Urine Bilirubin Negative Negative Urine Urobilinogen Normal Negative mg/dL Urine Leukocyte Esterase Negative Negative /uL Urine RBC <1 0 - 3 /hpf Urine Microscopic WBC 1 0-3 /HPF Urine Squamous Epithelial Cells None seen <5 /hpf Urine Bacteria None seen None Seen /hpf Urine Glucose Normal Normal mg/dL Urine Opiates Screen Neg NEGATIVE Urine Fentanyl Screen Neg NEGATIVE Urine Barbiturates Screen Neg NEGATIVE Urine Phencyclidine Screen Neg NEGATIVE Urine Amphetamines Screen Neg NEGATIVE Urine Benzodiazepines Screen Neg NEGATIVE Urine Cocaine Screen Neg NEGATIVE Urine Cannabinoids Screen Neg NEGATIVE Test 01/17/25 13:19 Range/Units Hemoglobin A1c 5.7 <5.7 % A1C Assessment Impression: 1. Acute respiratory failure 2. Iatrogenic Pneumothorax status post lung biopsy 3. Status post left ThoraVent placement 4. Lung nodule status post lung biopsy 5. COPD, stable; not in exacerbation 6. History of DVT and PE in 2009 7. History of polysubstance abuse (tobacco and ethanol) 8. Chronic back pain status post lower back surgery Plan: s/p left ThoraVent CT chest report reviewed. Re-expansion of left lung field post ThoraVent placement. Mild residual Pneumothorax, left. CXR this am 10/18/2024, Interval retraction of left thoravent. No pneumothorax. Follow up left lung nodule biopsy results. Supplemental oxygen. Keep o2 saturation above 92%. Incentive spirometry. Bronchodilators PRN SOB. Pain control Avoid oversedation. Keep on Continuous Low Wall Suction. CXR in AM. If no pneumothorax, okay to remove thoravent (petroleum gauze, 4x4, and padded/foam tape). DVT prophylaxis-Lovenox s.c. Condition: Critical Prognosis: Poor given multiple comorbidities. Rest of plan per hospitalist and other consultants. Thank you Dr. Newell/Lionel for allowing me to participate in this patient's care. Further recommendations will depend on patient's clinical course. Please do not hesitate to contact me if you have any questions or concerns. This medical document was created using an electronic medical record system with [employer] ([employer] dictation system. Although this document has been carefully reviewed, there may still be some phonetic and typographical errors. These areas are purely typographical due to imperfections of the software programs, and do not reflect any compromise in the patient's medical care. Plan discussed with: Patient, Other (RN, MD) Date of Service: Jan 18, 2025 Billing Provider: RIKKI BAUMANN MD Common Visit Codes: [id number] INP/OBS CARE (HIGH) RIKKI BAUMANN MD Jan 18, 2025 12:34
--- NOTE | 2025-01-18 15:37 | DVH ---
CHEST RADIOGRAPH Indication: Timed. R/o left PTX, placed to heimlich valve. Technique: Single frontal view of the chest was obtained COMPARISON: XY CHEST TWO VIEWS ROUTINE on DOS: 01/18/25, XY CHEST XRAY 1 VIEW on DOS: 01/18/25, XY CHES T XRAY 1 VIEW on DOS: 01/17/25, XY CHEST PORTABLE on DOS: 01/17/25, XY CHEST PORTABLE on DOS: 01/15/25 FINDINGS: Lines and Tubes: Left chest pacemaker. Left chest tube in-situ. Lungs: Multifocal airspace disease. Pleura: No effusion. No pneumothorax. Cardiomediastinal contours: Unremarkable Bones: Unremarkable IMPRESSION: No appreciable pneumothorax.
--- NOTE | 2025-01-18 17:45 | DVH ---
EXAM: XY CHEST PORTABLE HISTORY: TIMED! R/O LEFT PNUEMO; placed to Heimlech valve TECHNIQUE: 1 view of the chest COMPARISON: XY CHEST XRAY 1 VIEW on DOS: 01/18/25 FINDINGS/IMPRESSION: LUNGS: Alveolar opacity in the right lung base measuring 3.1 cm, new since prior. No visualized left- sided pneumothorax MEDIASTINUM: Thin caliber of the cardiomediastinal width. Left anterior chest cardiac device. BONES: No acute osseous abnormality OTHER: None
--- NOTE | 2025-01-18 18:20 | DVHPN2 ---
Subjective I am assuming the care of the patient from today onwards. Patient is status post chest tube placement for pneumothorax Changes from previous H/P or p: No Changes Objective Vitals Vital Signs Date Time Temp Pulse Resp B/P (MAP) Pulse Ox O2 Delivery O2 Flow Rate FiO2 01/18/25 16:33 98.4 71 17 127/79 (95) 97 98.4 01/18/25 07:35 Nasal Cannula* 3 32 Intake/Output Intake and Output 01/18/25 07:00 Intake Total 0 ml Output Total 300 ml Balance -300 ml Intake Oral 0 ml Output Urine Total 300 ml Exam HEENT pupils are reactive Neck is supple CV is S1-S2 regular rate and rhythm Respiratory diminished breath sounds bases GI positive bowel sound Extremity no edema 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 Medications Current Medications Medications Dose Ordered Sig/Angelica Route Start Time Stop Time Status Last Admin Dose Admin Ondansetron HCl 4 mg Q4HP PRN IV 01/17/25 18:15 Morphine Sulfate 2 mg Q4HPRN PRN IV 01/17/25 18:15 01/18/25 05:56 2 MG Enoxaparin Sodium 40 mg DAILY SC 01/18/25 10:00 01/18/25 09:51 40 MG Laboratory Results Laboratory Tests 01/18/25 08:02 Chemistry Test 01/18/25 08:02 Calcium Level 9.0 mg/dL (8.7-10.4) Urinalysis Test 01/17/25 16:11 Urine Color Colorless (Yellow) Urine Clarity Clear (Clear) Urine pH 6.5 (5.0-9.0) Urine Specific [place] 1.008 (1.001-1.035) Urine Protein Negative (Negative) Urine Ketones Negative (Negative) Urine Blood Negative /uL (Negative) Urine Nitrite Negative (Negative) Urine Bilirubin Negative (Negative) Urine Urobilinogen Normal mg/dL (Negative) Urine Leukocyte Esterase Negative /uL (Negative) Urine RBC <1 /hpf (0 - 3) Urine Microscopic WBC 1 /HPF (0-3) Urine Squamous Epithelial Cells None seen /hpf (<5) Urine Bacteria None seen /hpf (None Seen) Urine Glucose Normal mg/dL (Normal) Assessment/Plan Assessment/Plan 69-year-old male with a known history of sick sinus syndrome status post pacemaker placement, AFib status post ablation, status post watchman placement, COPD, pulmonary nodule status post biopsy, presented to the ER with a complaining of shortness of breaths and dyspnea and found to have 1. Left-sided iatrogenic pneumothorax status post chest tube placement 2. Lung nodule status post biopsy 3. Sick sinus syndrome status post pacemaker placement 4. AFib status post cardiac ablation 5. Acute hypoxic respiratory failure currently on O2 supplementation 6. COPD currently not in exacerbation 7. History of DVT and PE 8. Chronic back pain status post back surgery. -continue chest tube placement, follow up chest x-ray, follow up Pulmonary recommendations Plan discussed with: Patient My Orders Orders - PADDY BERRIOS MD Procedure Category Date Status Time Cardiac DIET 01/18/25 Transmitted Diet-2gna,Lofat,Lochol Dinner Date of Service: Jan 18, 2025 Billing Provider: PADDY BERRIOS MD Common Visit Codes: [id number] INP/OBS CARE(MOD) PADDY BERRIOS MD Jan 18, 2025 18:20
[2025-01-19] VITALS (7 sets, daily range): BP systolic 107–124; BP diastolic 36–79; PULSE 61–76; RESP 16–18; TEMP 97.3–98.1; O2SAT 93–99
--- NOTE | 2025-01-19 18:27 | DVHPN2 ---
Subjective . Patient is status post chest tube placement for pneumothorax. 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 Medications Current Medications Medications Dose Ordered Sig/Angelica Route Start Time Stop Time Status Last Admin Dose Admin Ondansetron HCl 4 mg Q4HP PRN IV 01/17/25 18:15 Morphine Sulfate 2 mg Q4HPRN PRN IV 01/17/25 18:15 01/18/25 05:56 2 MG Enoxaparin Sodium 40 mg DAILY SC 01/18/25 10:00 01/19/25 10:00 40 MG Laboratory Results Laboratory Tests 01/18/25 08:02 Urinalysis Test 01/17/25 16:11 Urine Color Colorless (Yellow) Urine Clarity Clear (Clear) Urine pH 6.5 (5.0-9.0) Urine Specific [place] 1.008 (1.001-1.035) Urine Protein Negative (Negative) Urine Ketones Negative (Negative) Urine Blood Negative /uL (Negative) Urine Nitrite Negative (Negative) Urine Bilirubin Negative (Negative) Urine Urobilinogen Normal mg/dL (Negative) Urine Leukocyte Esterase Negative /uL (Negative) Urine RBC <1 /hpf (0 - 3) Urine Microscopic WBC 1 /HPF (0-3) Urine Squamous Epithelial Cells None seen /hpf (<5) Urine Bacteria None seen /hpf (None Seen) Urine Glucose Normal mg/dL (Normal) Assessment/Plan Assessment/Plan 69-year-old male with a known history of sick sinus syndrome status post pacemaker placement, AFib status post ablation, status post watchman placement, COPD, pulmonary nodule status post biopsy, presented to the ER with a complaining of shortness of breaths and dyspnea and found to have 1. Left-sided iatrogenic pneumothorax status post chest tube placement 2. Lung nodule status post biopsy 3. Sick sinus syndrome status post pacemaker placement 4. AFib status post cardiac ablation 5. Acute hypoxic respiratory failure currently on O2 supplementation 6. COPD currently not in exacerbation 7. History of DVT and PE 8. Chronic back pain status post back surgery. -continue chest tube placement, follow up chest x-ray, follow up Pulmonary recommendations Plan discussed with: Patient Date of Service: Jan 19, 2025 Billing Provider: PADDY BERRIOS MD Common Visit Codes: [id number] INP/OBS CARE(MOD) PADDY BERRIOS MD Jan 19, 2025 18:27
[2025-01-20] VITALS (7 sets, daily range): BP systolic 90–114; BP diastolic 60–76; PULSE 60–73; RESP 16–19; TEMP 97.5–98.3; O2SAT 94–99
--- NOTE | 2025-01-20 09:32 | DVHPN2 ---
Subjective DOS: 01/19/25 Patient seen and examined at bedside. No overnight events. No new complaints. Reason for visit: Iatrogenic pneumothorax. Reviewed: Medications, Radiology Changes from previous H/P or p: No Changes Objective Vitals Vital Signs Date Time Temp Pulse Resp B/P (MAP) Pulse Ox O2 Delivery O2 Flow Rate FiO2 01/20/25 09:00 98.0 64 18 94/60 (71) 95 98.0 01/19/25 20:00 Nasal Cannula* 3 32 Intake/Output Intake and Output 01/20/25 07:00 Intake Total 750 ml Output Total 500 ml Balance 250 ml Intake Oral 750 ml Output Urine Total 500 ml # Voids 5 General Appearance: Alert, Oriented X3, Cooperative HEENT: Atraumatic, PERRLA, EOMI Lungs: Clear to auscultation, Normal air movement, Other (Thoravent in left chest. No subcutaneous emphysema.) Cardiovascular: Regular rate, Normal S1, Normal S2 Abdomen: Normal bowel sounds, Soft, No tenderness Back: No Flank Tenderness, No Midline Tenderness, No Spinal Abnormalities, No Other Musculoskeletal: Normal sensory function, Normal motor function Extremities: No clubbing, No cyanosis, No edema Neuro: Normal gait, Normal speech, Strength at 5/5 X4 ext, Cranial nerves 3-12 NL Skin: No Breakdown, No Bruising, No Significant Lesion, No Cyanosis, No Dry, No Intact, No Petechiae, No Rashes, No Warm, No Wounds, No Other Psych/Mental Status: Mental status NL, Mood NL Medications Current Medications Medications Dose Ordered Sig/Angelica Route Start Time Stop Time Status Last Admin Dose Admin Ondansetron HCl 4 mg Q4HP PRN IV 01/17/25 18:15 Morphine Sulfate 2 mg Q4HPRN PRN IV 01/17/25 18:15 01/18/25 05:56 2 MG Enoxaparin Sodium 40 mg DAILY SC 01/18/25 10:00 01/20/25 08:55 40 MG Laboratory Results Laboratory Tests 01/18/25 08:02 Urinalysis Test 01/17/25 16:11 Urine Color Colorless (Yellow) Urine Clarity Clear (Clear) Urine pH 6.5 (5.0-9.0) Urine Specific [place] 1.008 (1.001-1.035) Urine Protein Negative (Negative) Urine Ketones Negative (Negative) Urine Blood Negative /uL (Negative) Urine Nitrite Negative (Negative) Urine Bilirubin Negative (Negative) Urine Urobilinogen Normal mg/dL (Negative) Urine Leukocyte Esterase Negative /uL (Negative) Urine RBC <1 /hpf (0 - 3) Urine Microscopic WBC 1 /HPF (0-3) Urine Squamous Epithelial Cells None seen /hpf (<5) Urine Bacteria None seen /hpf (None Seen) Urine Glucose Normal mg/dL (Normal) Assessment/Plan Assessment/Plan Impression: 1. Acute respiratory failure 2. Iatrogenic Pneumothorax status post lung biopsy 3. Status post left ThoraVent placement 4. Lung nodule status post lung biopsy 5. COPD, stable; not in exacerbation 6. History of DVT and PE in 2009 7. History of polysubstance abuse (tobacco and ethanol) 8. Chronic back pain status post lower back surgery Interval changes: ThoraVent in place. On heimlich valve/water seal. CXR reviewed. No PTX. Plan to remove thoravent in am if no PTX on CXR. If no pneumothorax, okay to remove ThoraVent (petroleum gauze, 4x4, and padded/foam tape). No subcutaneous emphysema. Continue bronchodilators. Rest of plan as outlined below. Plan: s/p left ThoraVent CT chest report reviewed. Re-expansion of left lung field post ThoraVent placement. Mild residual Pneumothorax, left. CXR this am 10/18/2024, Interval retraction of left ThoraVent. No pneumothorax. Follow up left lung nodule biopsy results. Supplemental oxygen. Keep o2 saturation above 92%. Incentive spirometry. Bronchodilators PRN SOB. Pain control Avoid oversedation. CXR in AM. DVT prophylaxis-Lovenox s.c. Condition: Critical Prognosis: Poor given multiple comorbidities. Rest of plan per hospitalist and other consultants. Thank you Dr. Newell/Lionel for allowing me to participate in this patient's care. Further recommendations will depend on patient's clinical course. Please do not hesitate to contact me if you have any questions or concerns. This medical document was created using an electronic medical record system with [employer] system. Although this document has been carefully reviewed, there may still be some phonetic and typographical errors. These areas are purely typographical due to imperfections of the software programs, and do not reflect any compromise in the patient's medical care. Plan discussed with: Patient, Other (RN, MD) My Orders Orders - IRKKI BAUMANN MD Procedure Category Date Status Time Chest Xray 1 View XY 01/20/25 Transmitted 09:24 Date of Service: Jan 19, 2025 Billing Provider: RIKKI BAUMANN MD Common Visit Codes: [id number] INP/OBS CARE(HIGH) RIKKI BAUMANN MD Jan 20, 2025 09:32
--- NOTE | 2025-01-20 09:35 | DVHPN2 ---
Subjective DOS: 01/19/25 Patient seen and examined at bedside. No overnight events. No new complaints. Reason for visit: Iatrogenic pneumothorax. Reviewed: H&P, Medications, Radiology Changes from previous H/P or p: No Changes Objective Vitals Vital Signs Date Time Temp Pulse Resp B/P (MAP) Pulse Ox O2 Delivery O2 Flow Rate FiO2 01/20/25 09:00 98.0 64 18 94/60 (71) 95 98.0 01/19/25 20:00 Nasal Cannula* 3 32 Intake/Output Intake and Output 01/20/25 07:00 Intake Total 750 ml Output Total 500 ml Balance 250 ml Intake Oral 750 ml Output Urine Total 500 ml # Voids 5 General Appearance: Alert, Oriented X3, Cooperative HEENT: Atraumatic, PERRLA, EOMI Lungs: Clear to auscultation, Normal air movement, Other (Thoravent in left chest. No subcutaneous emphysema.) Cardiovascular: Regular rate, Normal S1, Normal S2 Abdomen: Normal bowel sounds, Soft, No tenderness Back: No Flank Tenderness, No Midline Tenderness, No Spinal Abnormalities, No Other Musculoskeletal: Normal sensory function, Normal motor function Extremities: No clubbing, No cyanosis, No edema Neuro: Normal gait, Normal speech, Strength at 5/5 X4 ext, Cranial nerves 3-12 NL Skin: No Breakdown, No Bruising, No Significant Lesion, No Cyanosis, No Dry, No Intact, No Petechiae, No Rashes, No Warm, No Wounds, No Other Psych/Mental Status: Mental status NL, Mood NL Medications Current Medications Medications Dose Ordered Sig/Angelica Route Start Time Stop Time Status Last Admin Dose Admin Ondansetron HCl 4 mg Q4HP PRN IV 01/17/25 18:15 Morphine Sulfate 2 mg Q4HPRN PRN IV 01/17/25 18:15 01/18/25 05:56 2 MG Enoxaparin Sodium 40 mg DAILY SC 01/18/25 10:00 01/20/25 08:55 40 MG Laboratory Results Laboratory Tests 01/18/25 08:02 Urinalysis Test 01/17/25 16:11 Urine Color Colorless (Yellow) Urine Clarity Clear (Clear) Urine pH 6.5 (5.0-9.0) Urine Specific [place] 1.008 (1.001-1.035) Urine Protein Negative (Negative) Urine Ketones Negative (Negative) Urine Blood Negative /uL (Negative) Urine Nitrite Negative (Negative) Urine Bilirubin Negative (Negative) Urine Urobilinogen Normal mg/dL (Negative) Urine Leukocyte Esterase Negative /uL (Negative) Urine RBC <1 /hpf (0 - 3) Urine Microscopic WBC 1 /HPF (0-3) Urine Squamous Epithelial Cells None seen /hpf (<5) Urine Bacteria None seen /hpf (None Seen) Urine Glucose Normal mg/dL (Normal) Assessment/Plan Assessment/Plan Impression: 1. Acute respiratory failure 2. Iatrogenic Pneumothorax status post lung biopsy 3. Status post left ThoraVent placement 4. Lung nodule status post lung biopsy 5. COPD, stable; not in exacerbation 6. History of DVT and PE in 2009 7. History of polysubstance abuse (tobacco and ethanol) 8. Chronic back pain status post lower back surgery Interval changes: CXR reviewed. No PTX. Removed ThoraVent. Petroleum gauze, 4x4, and padded/foam tape. No subcutaneous emphysema. CXR ordered. R/o PTX. Rest of plan as outlined below. Plan: s/p left ThoraVent CT chest report reviewed. Re-expansion of left lung field post ThoraVent placement. Mild residual Pneumothorax, left. CXR this am 10/18/2024, Interval retraction of left ThoraVent. No pneumothorax. Follow up left lung nodule biopsy results. Supplemental oxygen. Keep o2 saturation above 92%. Incentive spirometry. Bronchodilators PRN SOB. Pain control Avoid oversedation. CXR in AM. DVT prophylaxis-Lovenox s.c. Prognosis: Poor given multiple comorbidities. Rest of plan per hospitalist and other consultants. Thank you Dr. Walker for allowing me to participate in this patient's care. Further recommendations will depend on patient's clinical course. Please do not hesitate to contact me if you have any questions or concerns. This medical document was created using an electronic medical record system with [employer] dictation system. Although this document has been carefully reviewed, there may still be some phonetic and typographical errors. These areas are purely typographical due to imperfections of the software programs, and do not reflect any compromise in the patient's medical care. Plan discussed with: Patient, Other (RN, MD) My Orders Orders - RIKKI BAUMANN MD Procedure Category Date Status Time Chest Xray 1 View XY 01/20/25 Transmitted 09:24 Date of Service: Jan 20, 2025 Billing Provider: RIKKI BAUMANN MD Common Visit Codes: [id number] INP/OBS CARE(HIGH) RIKKI BAUMANN MD Jan 20, 2025 09:35
--- NOTE | 2025-01-20 09:57 | DVH ---
EXAM: XY CHEST XRAY 1 VIEW HISTORY: s/p left thoravent removal, r/o PTX COMPARISON: XY CHEST PORTABLE on DOS: 01/18/25, XY CHEST XRAY 1 VIEW on DOS: 01/18/25, XY CHEST XRAY 1 VIEW on DOS: 01/18/25, XY CHEST XRAY 1 VIEW on DOS: 01/17/25, XY CHEST PORTABLE on DOS: 01/17/25 TECHNIQUE: Portable upright AP view of the chest was performed. FINDINGS: There is mild scarring in the right lung base. No pneumothorax, new infiltrates, or pulmonary edema. The heart is not enlarged. There is a left chest pacemaker. There is at least 1 old left rib fracture . IMPRESSION: No acute intrathoracic process. No evidence of pneumothorax.
--- NOTE | 2025-01-20 10:43 | ECG ---
[facility] Test Date: 2025-01-17 Test Time: 12:41:29 Pat Name: JILLIAN BRISENO Department: ED Room: 0293T A Gender: M Car Pilot: al : 1955 Requested By: JO ANN LINDSAY Order Number: [id number] Reading MD: Breezy Silva Measurements Intervals Melvin Rate: 71 P: 69 SD: 188 QRS: 59 QRSD: 93 T: 42 QT: 384 QTc: 418 Interpretive Statements Sinus rhythm Low voltage, extremity and precordial leads Baseline wander in lead(s) V3 Electronically Signed On 01-22-2025 9:25:57 PDT by Breezy Silva Please click the below link to view image of tracing.
--- NOTE | 2025-01-20 16:46 | DVHPN2 ---
Subjective . Patient is status post chest tube placement for pneumothorax. Patient is cleared by Pulmonary, patient does have known history of COPD currently descending below 90% we will arrange home oxygen. Reason for visit: Iatrogenic pneumothorax. 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 No subcutaneous emphysema.) Cardiovascular: Regular rate, Normal S1, Normal S2 Abdomen: Normal bowel sounds, Soft, No tenderness Back: No Flank Tenderness, No Midline Tenderness, No Spinal Abnormalities, No Other Musculoskeletal: Normal sensory function, Normal motor function Extremities: No clubbing, No cyanosis, No edema Neuro: Normal gait, Normal speech, Strength at 5/5 X4 ext, Cranial nerves 3-12 NL Skin: No Breakdown, No Bruising, No Significant Lesion, No Cyanosis, No Dry, No Intact, No Petechiae, No Rashes, No Warm, No Wounds, No Other Psych/Mental Status: Mental status NL, Mood NL Medications Current Medications Medications Dose Ordered Sig/Angelica Route Start Time Stop Time Status Last Admin Dose Admin Ondansetron HCl 4 mg Q4HP PRN IV 01/17/25 18:15 Morphine Sulfate 2 mg Q4HPRN PRN IV 01/17/25 18:15 01/18/25 05:56 2 MG Enoxaparin Sodium 40 mg DAILY SC 01/18/25 10:00 01/20/25 08:55 40 MG Laboratory Results Laboratory Tests 01/18/25 08:02 Urinalysis Test 01/17/25 16:11 Urine Color Colorless (Yellow) Urine Clarity Clear (Clear) Urine pH 6.5 (5.0-9.0) Urine Specific [place] 1.008 (1.001-1.035) Urine Protein Negative (Negative) Urine Ketones Negative (Negative) Urine Blood Negative /uL (Negative) Urine Nitrite Negative (Negative) Urine Bilirubin Negative (Negative) Urine Urobilinogen Normal mg/dL (Negative) Urine Leukocyte Esterase Negative /uL (Negative) Urine RBC <1 /hpf (0 - 3) Urine Microscopic WBC 1 /HPF (0-3) Urine Squamous Epithelial Cells None seen /hpf (<5) Urine Bacteria None seen /hpf (None Seen) Urine Glucose Normal mg/dL (Normal) Assessment/Plan Assessment/Plan 69-year-old male with a known history of sick sinus syndrome status post pacemaker placement, AFib status post ablation, status post watchman placement, COPD, pulmonary nodule status post biopsy, presented to the ER with a complaining of shortness of breaths and dyspnea and found to have 1. Left-sided iatrogenic pneumothorax status post chest tube placement 2. Lung nodule status post biopsy 3. Sick sinus syndrome status post pacemaker placement 4. AFib status post cardiac ablation 5. Acute hypoxic respiratory failure currently on O2 supplementation 6. COPD currently not in exacerbation 7. History of DVT and PE 8. Chronic back pain status post back surgery. -patient's descending on room air below 90, arrange home oxygen at 2 L by continuous nasal cannula. -continue chest tube placement, follow up chest x-ray, follow up Pulmonary recommendations Plan discussed with: Patient My Orders Orders - PADDY BERRIOS MD Procedure Category Date Status Time Abg W/ Co-Ox RT 01/20/25 Logged 15:24 Date of Service: Jan 20, 2025 Billing Provider: PADDY BERRIOS MD Common Visit Codes: [id number] INP/OBS CARE(MOD) PADDY BERRIOS MD Jan 20, 2025 16:46
[2025-01-21] VITALS (7 sets, daily range): BP systolic 98–125; BP diastolic 67–81; PULSE 60–85; RESP 16–20; TEMP 97.4–98.1; O2SAT 96–99
--- NOTE | 2025-01-21 13:37 | DVHSR ---
APPROVED REPORT EXAM: LIMITED Two-dimensional and M-mode echocardiogram with Doppler and color Doppler. Blood Pressure: 129/83 mmHg INDICATION Pneumothorax RISK FACTORS Height: 6' , Weight: 212 DIMENSIONS LVDd4.5 (3.8-5.7cm)LA (2D)3.0 (1.9-4.0cm)Aortic Root4.4 (2.0-3.7cm) LVDs3.5 (2.5-4.0cm)LA (MM) (1.9-4.0cm)Aortic Cusp Exc1.8 (1.5-2.0cm) EF (%) 50.0 (55-70%)Rt. Atrium3.6 (1.9-4.0cm)Asc. Aorta cm IVSd1.1 (0.7-1.1cm)RV (D) (1.8-2.4cm) PWd1.0 (0.7-1.1cm) Mitral Valve MitralMitral Stenosis E wave0.60m/sMV Mean GR.mmHg A wave0.50m/sMV Peak GR.mmHg E/A ratio1.22D MVAcm2 Aortic Valve Aortic ValveAortic Stenosis V10.80m/Julio Mean GR.2mmHg V20.90m/Julio Peak GR.4mmHg LVOT Diameter2.5 (1.8-2.4cm)Doppler AVA4.36cm2 Other Information Quality : Technically LimitedRhythm : Technically limited study due to body habitus and patient position. Conclusion Technically difficult study. Difficult acoustic windows. Sinus rhythm. Aortic root enlargement. Valves are normal. EF of 55% with normal RV function. Unremarkable Doppler. No pericardial effusion masses or vegetations.
--- NOTE | 2025-01-21 15:39 | DVHDS2 ---
Discharge Summary Date of Admission Jan 17, 2025 at 18:02 Date of Discharge: Jan 21, 2025 Labs/Diagnostic Data: Laboratory Results Test 01/18/25 08:02 01/17/25 19:50 01/17/25 16:27 01/17/25 16:11 White Blood Count 7.1 10^3/uL (4.4-10.8) Red Blood Count 4.73 10^6/uL (4.5-5.90) Hemoglobin 15.7 g/dL (13.5-17.5) Hematocrit 43.9 % (41.0-53.0) Mean Corpuscular Volume 92.9 fL (80.0-100.0) Mean Corpuscular Hemoglobin 33.2 pg (28.0-32.0) Mean Corpuscular Hemoglobin Concent 35.8 g/dL (32.0-36.0) Red Cell Distribution Width 13.4 % (11.8-14.3) Platelet Count 184 10^3/uL (140-450) Mean Platelet Volume 7.5 fL (6.9-10.8) Neutrophils (%) (Auto) 73.7 % (37.0-80.0) Lymphocytes (%) (Auto) 14.1 % (10.0-50.0) Monocytes (%) (Auto) 10.1 % (0.0-12.0) Eosinophils (%) (Auto) 1.6 % (0.0-7.0) Basophils (%) (Auto) 0.5 % (0.0-2.0) Neutrophils # (Auto) 5.2 10 ^3/uL (1.6-8.6) Lymphocytes # (Auto) 1.0 10 ^3/uL (0.4-5.4) Monocytes # (Auto) 0.7 10 ^3/uL (0-1.3) Eosinophils # (Auto) 0.1 10 ^3/uL (0-0.8) Basophils # (Auto) 0 10 ^3/uL (0-0.2) Nucleated Red Blood Cells 0.1 % Sodium Level 140 mmol/L (136-145) Potassium Level 4.1 mmol/L (3.5-5.1) Chloride Level 104 mmol/L (98-107) Carbon Dioxide Level 28 mmol/L (20-31) Anion Gap 8 (5-15) Blood Urea Nitrogen 10 mg/dL (9-23) Creatinine 0.83 mg/dL (0.700-1.30) Glomerular Filtration Rate Calc 95 mL/min (>90) BUN/Creatinine Ratio 12.0 (10.0-20.0) Serum Glucose 105 mg/dL (74-106) Calcium Level 9.0 mg/dL (8.7-10.4) Influenza Type A Antigen Negative (Negative) Influenza Type B Antigen Negative (Negative) SARS-CoV-2 Antigen (Rapid) Negative (NEGATIVE) Phosphorus Level 3.7 mg/dL (2.4-5.1) Magnesium Level 2.2 mg/dL (1.6-2.6) Total Bilirubin 1.0 mg/dL (0.2-1.0) Direct Bilirubin 0.2 mg/dL (<0.3) Aspartate Amino Transferase (AST) 26 U/L (13-40) Alanine Aminotransferase (ALT) 21 U/L (7-40) Alkaline Phosphatase 40 U/L (46-116) Troponin I High Sensitivity 3 ng/L (</=54) Total Protein 6.5 g/dL (5.7-8.2) Albumin 4.2 g/dL (3.2-4.8) Triglycerides Level 56 mg/dL (< 150) Cholesterol Level 118 mg/dL (< 200) LDL Cholesterol 59 mg/dL (< 100) HDL Cholesterol 50 mg/dL (40-59) Vitamin B12 Level 365 pg/mL (211-911) Vitamin D 25-Hydroxy 35.5 ng/mL (30.0-100) Thyroid Stimulating Hormone (TSH) 2.49 uIU/mL (0.55-4.78) Urine Color Colorless (Yellow) Urine Clarity Clear (Clear) Urine pH 6.5 (5.0-9.0) Urine Specific [place] 1.008 (1.001-1.035) Urine Protein Negative (Negative) Urine Ketones Negative (Negative) Urine Blood Negative /uL (Negative) Urine Nitrite Negative (Negative) Urine Bilirubin Negative (Negative) Urine Urobilinogen Normal mg/dL (Negative) Urine Leukocyte Esterase Negative /uL (Negative) Urine RBC <1 /hpf (0 - 3) Urine Microscopic WBC 1 /HPF (0-3) Urine Squamous Epithelial Cells None seen /hpf (<5) Urine Bacteria None seen /hpf (None Seen) Urine Glucose Normal mg/dL (Normal) Urine Opiates Screen Neg (NEGATIVE) Urine Fentanyl Screen Neg (NEGATIVE) Urine Barbiturates Screen Neg (NEGATIVE) Urine Phencyclidine Screen Neg (NEGATIVE) Urine Amphetamines Screen Neg (NEGATIVE) Urine Benzodiazepines Screen Neg (NEGATIVE) Urine Cocaine Screen Neg (NEGATIVE) Urine Cannabinoids Screen Neg (NEGATIVE) Test 01/17/25 13:19 Hemoglobin A1c 5.7 % A1C (<5.7) Other Laboratory Tests 01/18/25 08:02 Brief Hx & Hospital Course: 69-year-old male with a known history of sick sinus syndrome status post pacemaker placement, AFib status post ablation, status post watchman placement, COPD, pulmonary nodule status post biopsy, presented to the ER with a complaining of shortness of breaths and dyspnea and found to have left-sided iatrogenic pneumothorax status post chest tube placement. Patient was eventually being seen by Dr. Sands as well. Patient's lung biopsy came back negative for any cancer but does could be chronic granulomatous changes. Diet can follow up as an outpatient with the primary physician as advised Dr. Sands. Patient is being discharged under stable condition. Patient did not qualify for home oxygen. Condition at Discharge: Stable Final Diagnosis/Problems List 69-year-old male with a known history of sick sinus syndrome status post pacemaker placement, AFib status post ablation, status post watchman placement, COPD, pulmonary nodule status post biopsy, presented to the ER with a complaining of shortness of breaths and dyspnea and found to have 1. Left-sided iatrogenic pneumothorax status post chest tube placement , status post chest tube removal 2. Lung nodule status post biopsy 3. Sick sinus syndrome status post pacemaker placement 4. AFib status post cardiac ablation 5. Acute hypoxic respiratory failure , O2 saturation more than 92% on room air. 6. COPD currently not in exacerbation 7. History of DVT and PE 8. Chronic back pain status post back surgery. Discharge Disposition: Home SNF Discharge Will this Physician continue t: No Discharge Instruct/Medications Diet: Cardiac 2g Na,low cholest Activity: No Restrictions, As Tolerated Follow Up/Referral: Follow up with the PCP in one week to follow up on the lung biopsy. Medications: Resume home medications. Scheduled Aspirin (Aspir-81), 1 TAB PO DAILY, (Reported) Baclofen (Baclofen), 1 TAB PO TID, (Reported) Hctz (Hydrochlorothiazide), 12.5 MG PO DAILY, (Reported) Sildenafil Citrate (Viagra), 50 MG PO UD, (Reported) Miscellaneous Medications Albuterol Sulfate (Albuterol Sulfate), 0.083 % IN, (Reported) Discontinued Medications Apixaban Base (Eliquis), 5 MG PO BID, (Reported) Atorvastatin Calcium (Lipitor), 1 TAB PO QPM, (Reported) Gabapentin (Gabapentin), 300 MG PO HS, (Reported) Discharge Statement: "Patient was advised to return to the ER or call 911 if any headaches, dizziness, shortness of breath, chest pain, abdominal pain, bleeding, fevers, or worsening of medical condition. Patient was counseled about treatment plan, medications, possible side effects, patientverbalized understanding. All questions were answered to the best of my ability. This discharge took greater then 30 minutes in planning, reviewing documentation, counseling the patient, and discussing with other team members." ASSESSMENT ASSESSMENT Assessment 69-year-old male with a known history of sick sinus syndrome status post pacemaker placement, AFib status post ablation, status post watchman placement, COPD, pulmonary nodule status post biopsy, presented to the ER with a complaining of shortness of breaths and dyspnea and found to have 1. Left-sided iatrogenic pneumothorax status post chest tube placement , status post chest tube removal 2. Lung nodule status post biopsy 3. Sick sinus syndrome status post pacemaker placement 4. AFib status post cardiac ablation 5. Acute hypoxic respiratory failure , O2 saturation more than 92% on room air. 6. COPD currently not in exacerbation 7. History of DVT and PE 8. Chronic back pain status post back surgery. Date of Service: Jan 21, 2025 Billing Provider: PADDY BERRIOS MD Common Visit Codes: [id number] DISCH DAY >30min PADDY BERRIOS MD Jan 21, 2025 15:39
--- NOTE | 2025-01-21 20:52 | DVHPN2 ---
Subjective DOS: 01/21/25 Patient seen and examined at bedside. No overnight events. No new complaints. Reason for visit: Iatrogenic pneumothorax. Reviewed: H&P, Medications, Radiology Changes from previous H/P or p: No Changes Objective Vitals Vital Signs Date Time Temp Pulse Resp B/P (MAP) Pulse Ox O2 Delivery O2 Flow Rate FiO2 01/21/25 17:20 98.1 62 16 96 01/21/25 16:48 115/78 (90) 01/21/25 08:00 Nasal Cannula* 2 28 Intake/Output Intake and Output 01/21/25 07:00 Intake Total 2150 ml Output Total 800 ml Balance 1350 ml Intake Oral 2150 ml Output Urine Total 800 ml # Voids 3 General Appearance: Alert, Oriented X3, Cooperative HEENT: Atraumatic, PERRLA, EOMI Lungs: Clear to auscultation, Normal air movement, Other (No subcutaneous emphysema.) Cardiovascular: Regular rate, Normal S1, Normal S2 Abdomen: Normal bowel sounds, Soft, No tenderness Back: No Flank Tenderness, No Midline Tenderness, No Spinal Abnormalities, No Other Musculoskeletal: Normal sensory function, Normal motor function Extremities: No clubbing, No cyanosis, No edema Neuro: Normal gait, Normal speech, Strength at 5/5 X4 ext, Cranial nerves 3-12 NL Skin: No Breakdown, No Bruising, No Significant Lesion, No Cyanosis; Dry, I ntact; No Petechiae, No Rashes; Warm; No Wounds, No Other Psych/Mental Status: Mental status NL, Mood NL Laboratory Results Laboratory Tests 01/18/25 08:02 Urinalysis Test 01/17/25 16:11 Urine Color Colorless (Yellow) Urine Clarity Clear (Clear) Urine pH 6.5 (5.0-9.0) Urine Specific [place] 1.008 (1.001-1.035) Urine Protein Negative (Negative) Urine Ketones Negative (Negative) Urine Blood Negative /uL (Negative) Urine Nitrite Negative (Negative) Urine Bilirubin Negative (Negative) Urine Urobilinogen Normal mg/dL (Negative) Urine Leukocyte Esterase Negative /uL (Negative) Urine RBC <1 /hpf (0 - 3) Urine Microscopic WBC 1 /HPF (0-3) Urine Squamous Epithelial Cells None seen /hpf (<5) Urine Bacteria None seen /hpf (None Seen) Urine Glucose Normal mg/dL (Normal) Assessment/Plan Assessment/Plan Impression: 1. Acute respiratory failure 2. Iatrogenic Pneumothorax status post lung biopsy 3. Status post left ThoraVent placement 4. Lung nodule status post lung biopsy 5. COPD, stable; not in exacerbation 6. History of DVT and PE in 2009 7. History of polysubstance abuse (tobacco and ethanol) 8. Chronic back pain status post lower back surgery Interval changes: CXR reviewed. No PTX. S/p removal of ThoraVent. Petroleum gauze, 4x4, and padded/foam tape. No subcutaneous emphysema. CXR reviewed, no evidence of pneumothorax. Patient is breathing on room air. No distress. He was noted to have desaturation yesterday. Continue bronchodilators Incentive spirometry CPAP at night due to obstructive sleep apnea. Patient is stable for discharge from the pulmonary standpoint. Rest of plan as outlined below. Plan: s/p left ThoraVent placement CT chest report reviewed. Re-expansion of left lung field post ThoraVent placement. S/p ThoraVent removal, chest x-ray demonstrated resolution of left pneumothorax. Follow up left lung nodule biopsy results. Supplemental oxygen PRN Keep o2 saturation above 92%. Incentive spirometry. Bronchodilators PRN SOB. Pain control Avoid oversedation. DVT prophylaxis-Lovenox s.c. Prognosis: Poor given multiple comorbidities. Rest of plan per hospitalist and other consultants. Thank you Dr. Walker for allowing me to participate in this patient's care. Further recommendations will depend on patient's clinical course. Please do not hesitate to contact me if you have any questions or concerns. This medical document was created using an electronic medical record system with [employer] dictation system. Although this document has been carefully reviewed, there may still be some phonetic and typographical errors. These areas are purely typographical due to imperfections of the software programs, and do not reflect any compromise in the patient's medical care. Plan discussed with: Patient, Other (RN [place]) Date of Service: Jan 21, 2025 Billing Provider: RIKKI BAUMANN MD Common Visit Codes: [id number] INP/OBS CARE(HIGH) RIKKI BAUMANN MD Jan 21, 2025 20:52
== END 2025-01-21 18:49 | disposition home or self-care (01) | DRG 199 ==
LOC: ER 12:37 → OVERFLOW 18:02 → TELE-WESTW 22:47
PROVIDERS: ADMIT Internal Medicine; ATTEND Internal Medicine
PROC: 0W9B30Z Drainage of Left Pleural Cavity with Drainage Device, Percutaneous Approach (ICD-10-PCS; principal; 2025-01-17)
DX: J95.811 Postprocedural pneumothorax (principal); J96.01 Acute respiratory failure with hypoxia; G89.29 Other chronic pain; J44.9 Chronic obstructive pulmonary disease, unspecified; I48.0 Paroxysmal atrial fibrillation; G47.33 Obstructive sleep apnea (adult) (pediatric); R91.1 Solitary pulmonary nodule; Z98.1 Arthrodesis status; Z95.0 Presence of cardiac pacemaker; Z80.0 Family history of malignant neoplasm of digestive organs; Z87.891 Personal history of nicotine dependence; I49.5 Sick sinus syndrome; Z80.6 Family history of leukemia; Z86.718 Personal history of other venous thrombosis and embolism; Z86.711 Personal history of pulmonary embolism; Y84.8 Other medical procedures as the cause of abnormal reaction of the patient, or of later complication, without mention of misadventure at the time of the procedure; Y92.89 Other specified places as the place of occurrence of the external cause
CPT/HCPCS: 32554; 36415; 36600; 71045; 71046; 71250; 80048; 80061; 80076; 80307; 81001; 82306; 82607; 82805; 83036; 83735; 84100; 84443; 84484; 85025; 87426; 87804; 93005; 93306; 96374; 96375; 99291; 99292; G0378; J2405

== ENCOUNTER 2025-01-29 15:55 | Outpatient (CLI) | payer MEDICAID ==
[~2025-01-29 15:55] MED LIST changes: -APIX5TAB PO; +ASPI1TAB20 PO; -ATOR10TA PO; +BACL20TA PO; -GABA-1250 PO
== END 2025-01-29 17:00 | disposition home or self-care (01) ==
LOC: LAB 15:55
PROVIDERS: ATTEND Internal Medicine
DX: R91.8 Other nonspecific abnormal finding of lung field (principal)
CPT/HCPCS: 87070; 87205

== ENCOUNTER 2025-02-26 08:40 | Outpatient (CLI) | payer MEDICAID ==
[2025-02-26] MEDS ORDERED: ALBUTEROL SULF 2.5 MG/0.5ML(0.5%) NEB SOLN ONE (08:56)
== END 2025-02-26 17:00 | disposition home or self-care (01) ==
LOC: RT 08:40
PROVIDERS: ATTEND Internal Medicine Pulmonary Disease
DX: J44.9 Chronic obstructive pulmonary disease, unspecified (principal); R06.00 Dyspnea, unspecified; R06.02 Shortness of breath; Z87.891 Personal history of nicotine dependence
CPT/HCPCS: 94060; 94618; 94727; 94729